=== PATIENT | male | born 1930 | race Caucasian/White ===

== ENCOUNTER 2016-10-27 10:46 | Emergency (ER) | payer MEDICARE, OTHER ==
--- NOTE | 2016-10-27 12:44 | RADIOLOGY REPORT (SQ) ---
EXAM DESCRIPTION: CHEST PA/LAT COMPLETED DATE/TIME: 10/27/2016 12:28 pm REASON FOR STUDY: eval chest tube COMPARISON: None. EXAM PARAMETERS: NUMBER OF VIEWS: two views TECHNIQUE: Digital Frontal and Lateral radiographic views of the chest acquired. RADIATION DOSE: NA LIMITATIONS: none FINDINGS: LUNGS AND PLEURA: Parenchymal opacities at the right base with pleural and parenchymal. R ight apical pleural thickening. Left lung clear. Indwelling large caliber chest tube in the right p leural space. No obvious pneumothorax or there are some small lucencies likely in the right pleural space at the base. MEDIASTINUM AND HILAR STRUCTURES: No masses or contour abnormalities. HEART AND VASCULAR STRUCTURES: Heart normal size. No evidence for failure. BONES: No acute findings. HARDWARE: None in the chest. OTHER: No other significant finding. IMPRESSION: Indwelling right chest tube with no large pneumothorax. Lucencies at the base suggest s mall air bubbles in the right pleural space. Basilar and apical opacities age indeterminate. TECHNICAL DOCUMENTATION: JOB ID: [id number] [employer]- All Rights Reserved
--- NOTE | 2016-10-27 13:53 | ER Document Report ---
ED General - General Chief Complaint: Other Stated Complaint: DRAIN TUBE CHECK Time Seen by Provider: 10/27/16 11:43 TRAVEL OUTSIDE OF THE [place] IN LAST 30 DAYS: No - HPI Patient complains to provider of: Evaluation of chest tube Notes: Patient coming in for evaluation of chest tube. Patient had a chest tube placed in [place] for pleural effusion states has been draining fluid however has a Heimlich or flutter valve that stop making the buzzing noise. Patient states she called the hospital and was told to come to the ER for further evaluation. Denies any fever chills nausea vomiting shortness of breath. Patient otherwise states that he would not be in the ER for was not for this flutter valve - Related Data Allergies/Adverse Reactions: No Known Allergies Allergy (Verified 10/27/16 10:49) Past Medical History - Social History Smoking Status: Former Smoker Chew tobacco use (# tins/day): No Frequency of alcohol use: None Drug Abuse: None Family History: Reviewed & Not Pertinent Patient has suicidal ideation: No Patient has homicidal ideation: No - Past Medical History Cardiac Medical History: Denies: Hx Heart Attack, Hx Hypertension Pulmonary Medical History: Denies: Hx Asthma Neurological Medical History: Denies: Hx Cerebrovascular Accident, Hx Seizures Renal/ Medical History: Denies: Hx Peritoneal Dialysis Malignancy Medical History: Reports Hx Skin Cancer - basal cell carcinoma on back GI Medical History: Reports: Hx Gastroesophageal Reflux Disease. Denies: Hx Hepatitis, Hx Hiatal Hernia, Hx Ulcer Musculoskeltal Medical History: Reports Hx Arthritis Infectious Medical History: Denies: Hx Hepatitis Past Surgical History: Reports: Hx Appendectomy, Hx Herniorrhaphy, Hx Orthopedic Surgery - finger. Denies: Hx Open Heart Surgery, Hx Pacemaker - Immunizations Immunizations up to date: Yes Hx Diphtheria, Pertussis, Tetanus Vaccination: Yes Review of Systems - Review of Systems Constitutional: Other - Evaluation of chest tube EENT: No symptoms reported Cardiovascular: No symptoms reported Respiratory: No symptoms reported Gastrointestinal: No symptoms reported Genitourinary: No symptoms reported Male Genitourinary: No symptoms reported Musculoskeletal: No symptoms reported Skin: No symptoms reported Hematologic/Lymphatic: No symptoms reported Neurological/Psychological: No symptoms reported Physical Exam - Vital signs Vitals: Temp Pulse Resp BP Pulse Ox 97.9 F 97 22 H 146/73 H 98 10/27/16 10:49 10/27/16 10:49 10/27/16 10:49 10/27/16 10:49 10/27/16 10:49 Interpretation: Normal - General General appearance: Appears well, Alert - HEENT Head: Normocephalic, Atraumatic Eyes: Normal Pupils: PERRL - Respiratory Respiratory status: No respiratory distress, Other - Patient had a chest tube that goes to a flutter valve into a fluid collection bottle. Patient is able take a deep breath and when any movement of the flutter valve. Patient has clear lung sounds. There is no signs of infection there is some clear fluid in the chest tube at the flutter valve site Chest status: Nontender Breath sounds: Normal Chest palpation: Normal - Cardiovascular Rhythm: Regular Heart sounds: Normal auscultation Murmur: No - Abdominal Inspection: Normal Distension: No distension Bowel sounds: Normal Tenderness: Nontender Organomegaly: No organomegaly - Back Back: Normal, Nontender - Extremities General upper extremity: Normal inspection, Nontender, Normal color, Normal ROM , Normal temperature General lower extremity: Normal inspection, Nontender, Normal color, Normal ROM , Normal temperature, Normal weight bearing. No: Jimmy's sign - Neurological Neuro grossly intact: Yes Cognition: Normal Orientation: AAOx4 [place] Coma Scale Eye Opening: Spontaneous [place]sie Coma Scale Verbal: Oriented [place] Coma Scale Motor: Obeys Commands [place] Coma Scale Total: 15 Speech: Normal Motor strength normal: LUE, RUE, LLE, RLE Sensory: Normal - Psychological Associated symptoms: Normal affect, Normal mood - Skin Skin Temperature: Warm Skin Moisture: Dry Skin Color: Normal Course - Re-evaluation Re-evalutation: 10/27/16 16:40 Chest x-ray shows no remaining pneumothorax. I did discuss findings with the cardiothoracic surgeon in [place] at [facility] who states that the patient more likely had an air leak and therefore the flutter valve should not be working at the air leak has healed. At this continues more likely patient will have a chest tube removed in the following week and that he will contact the patient. This was relayed towards patient patient agrees and will be discharged home - Vital Signs Vital signs: Temp Pulse Resp BP Pulse Ox 97.9 F 73 17 145/70 H 98 10/27/16 10:49 10/27/16 14:05 10/27/16 14:05 10/27/16 14:05 10/27/16 14:05 Discharge - Discharge Clinical Impression: Chest tube evaluation Condition: Stable Disposition: HOME, SELF-CARE Additional Instructions: I discussed your chest x-ray with your cardiothoracic surgeon at [facility]. Your chest to is functioning properly you can expect a phone call from your cardiothoracic surgeon at that they may be ready to remove your tube. Return to the ER or see her physician for any fevers chills or sudden on onset of shortness of breath. Referrals: SHARMIN BETTS MD [Primary Care Provider] - Follow up as needed
[2016-10-27 14:07] VITALS: BP 145/70
== END 2016-10-27 14:10 | disposition home or self-care (01) ==
LOC: ER 10:46
DX: T85.898A Other specified complication of other internal prosthetic devices, implants and grafts, initial encounter (principal); Z87.891 Personal history of nicotine dependence; X58.XXXA Exposure to other specified factors, initial encounter
CPT/HCPCS: 71020; 99283

== ENCOUNTER 2017-09-20 10:25 | Emergency (ER) | payer MEDICARE, OTHER ==
[2017-09-20 10:34] VITALS: BP 136/84
[2017-09-20] MEDS ORDERED: ACETAMINOPHEN 325 MG TABLET PO ONE (10:51)
--- NOTE | 2017-09-20 10:53 | ER Document Report ---
ED Medical Screen (RME) - General Chief Complaint: Back Injury Stated Complaint: BACK PAIN Time Seen by Provider: 09/20/17 10:45 Notes: RAPID MEDICAL EVALUATION DISCLOSURE I have seen this patient as part of a Rapid Medical Evaluation and, if applicable, placed any initially appropriate orders. The patient will be seen and fully evaluated, including a full history and physical exam, by a provider ( in Main ED or Fast Track) when a room becomes available. 87-year-old male here with complaints of low back pain and bilateral hip pain that started several days ago after he fell. He states the reason he fell was because he was going up the steps and "my legs gave out on me". He denies pain other than the low back and the hips. He reports he did not hit his head or neck or have any loss of consciousness. He has not been taking anything for pain because he did not know what to take. Denies any other symptoms. EXAM Minimal to mild midline lumbar spine TTP Minimal to mild lumbar paraspinal muscle TTP TRAVEL OUTSIDE OF THE [place] IN LAST 30 DAYS: No - Related Data Allergies/Adverse Reactions: No Known Allergies Allergy (Verified 09/20/17 10:32) Past Medical History - Past Medical History Cardiac Medical History: Denies: Hx Heart Attack, Hx Hypertension Pulmonary Medical History: Denies: Hx Asthma Neurological Medical History: Denies: Hx Cerebrovascular Accident, Hx Seizures Renal/ Medical History: Denies: Hx Peritoneal Dialysis Malignancy Medical History: Reports Hx Skin Cancer - basal cell carcinoma on back GI Medical History: Reports: Hx Gastroesophageal Reflux Disease. Denies: Hx Hepatitis, Hx Hiatal Hernia, Hx Ulcer Musculoskeltal Medical History: Reports Hx Arthritis Infectious Medical History: Denies: Hx Hepatitis Past Surgical History: Reports: Hx Appendectomy, Hx Herniorrhaphy, Hx Orthopedic Surgery - finger. Denies: Hx Open Heart Surgery, Hx Pacemaker - Immunizations Immunizations up to date: Yes Hx Diphtheria, Pertussis, Tetanus Vaccination: Yes Physical Exam - Vital signs Vitals: Temp Pulse Resp BP Pulse Ox 97.7 F 78 18 136/84 H 97 09/20/17 10:33 09/20/17 10:33 09/20/17 10:33 09/20/17 10:33 09/20/17 10:33 Course - Vital Signs Vital signs: Temp Pulse Resp BP Pulse Ox 97.7 F 78 18 136/84 H 97 09/20/17 10:33 09/20/17 10:33 09/20/17 10:33 09/20/17 10:33 09/20/17 10:33
--- NOTE | 2017-09-20 11:30 | RADIOLOGY REPORT (SQ) ---
EXAM DESCRIPTION: L SPINE WHOLE COMPLETED DATE/TIME: 09/20/2017 11:19 am REASON FOR STUDY: s/p fall COMPARISON: None. NUMBER OF VIEWS: Five views including obliques. TECHNIQUE: AP, lateral, oblique, and sacral radiographic images acquired of the lumbar spine. LIMITATIONS: None. FINDINGS: MINERALIZATION: Normal. SEGMENTATION: Transitional vertebra. ALIGNMENT: Minor anterolisthesis L2-3 with arthritic change facet joints. No defects of the pars int erarticularis. VERTEBRAE: Maintained height. No fracture or worrisome bone lesion. DISCS: Multilevel disc space narrowing with osteophytes. POSTERIOR ELEMENTS: Pedicles and facets are intact. No pars defect or posterior arch defects. Facet arthropathy is present. HARDWARE: None in the spine. PARASPINAL SOFT TISSUES: Normal. PELVIS: Intact as visualized. No fractures or worrisome bone lesions. SI joints intact. OTHER: No other significant finding. SEGMENTATION: Transitional vertebra. IMPRESSION: Degenerative changes lumbar spine. No acute fractures identified. TECHNICAL DOCUMENTATION: JOB ID: [id number] [employer]- All Rights Reserved Reading location - IP/workstation name: [facility]
--- NOTE | 2017-09-20 11:33 | RADIOLOGY REPORT (SQ) ---
EXAM DESCRIPTION: PELVIS AP COMPLETED DATE/TIME: 09/20/2017 11:19 am REASON FOR STUDY: s/p fall COMPARISON: None. NUMBER OF VIEWS: One view TECHNIQUE: AP Pelvis LIMITATIONS: None. FINDINGS: MINERALIZATION: Normal. HIPS: No acute fractures identified. Mild arthritic changes noted. PELVIS AND SACRUM: No acute fracture or dislocation. No worrisome bone lesions. PUBIS AND ISCHIUM: No acute fracture. LOWER LUMBAR SPINE: See lumbar spine same date SOFT TISSUES: Surgical clips noted anteriorly. OTHER: If an occult fracture suspected clinically, consider followup imaging. IMPRESSION: No acute fractures identified. TECHNICAL DOCUMENTATION: JOB ID: [id number] [employer]- All Rights Reserved Reading location - IP/workstation name: [facility]
--- NOTE | 2017-09-20 13:53 | ER Document Report ---
ED Neck/Back Problem <KELLY MULTANI - Last Filed: 09/20/17 14:00> - General Mode of Arrival: Ambulatory Information source: Patient TRAVEL OUTSIDE OF THE [place] IN LAST 30 DAYS: No <SAMIR NASH - Last Filed: 09/20/17 14:56> - General Chief Complaint: Back Injury Stated Complaint: BACK PAIN Time Seen by Provider: 09/20/17 10:45 Notes: Patient is an 87-year-old male who presents to the emergency department today with complaints of back pain. Patient states that he fell 2 days ago when walking up the stairs because his leg gave out. Patient states this has not happened in the past. Patient states he did not hit his head. Patient has tried nothing at home for the pain. (SAMIR NASH) - Related Data Allergies/Adverse Reactions: No Known Allergies Allergy (Verified 09/20/17 10:32) Past Medical History - General Information source: Patient - Social History Smoking Status: Former Smoker Cigarette use (# per day): No Chew tobacco use (# tins/day): No Frequency of alcohol use: Rare Drug Abuse: None Lives with: Family Family History: Reviewed & Not Pertinent Patient has suicidal ideation: No Patient has homicidal ideation: No Malignancy Medical History: Reports Hx Skin Cancer - basal cell carcinoma on back GI Medical History: Reports: Hx Gastroesophageal Reflux Disease Musculoskeltal Medical History: Reports Hx Arthritis Past Surgical History: Reports: Hx Abdominal Surgery - inguinal hernia repair, Hx Appendectomy, Hx Herniorrhaphy, Hx Orthopedic Surgery - finger - Immunizations Immunizations up to date: Yes Hx Diphtheria, Pertussis, Tetanus Vaccination: Yes <SAMIR NASH - Last Filed: 09/20/17 14:56> Review of Systems - Review of Systems Constitutional: No symptoms reported EENT: No symptoms reported Cardiovascular: No symptoms reported Respiratory: No symptoms reported Gastrointestinal: No symptoms reported Genitourinary: No symptoms reported Male Genitourinary: No symptoms reported Musculoskeletal: See HPI, Back pain Skin: No symptoms reported Hematologic/Lymphatic: No symptoms reported Neurological/Psychological: No symptoms reported -: Yes All other systems reviewed and negative <SAMIR NASH - Last Filed: 09/20/17 14:56> Physical Exam <KELLY MULTANI - Last Filed: 09/20/17 14:00> <SAMIR NASH - Last Filed: 09/20/17 14:56> - Vital signs Vitals: Temp Pulse Resp BP Pulse Ox 97.7 F 78 18 136/84 H 97 09/20/17 10:33 09/20/17 10:33 09/20/17 10:33 09/20/17 10:33 09/20/17 10:33 - Notes Notes: Physical Exam: General: Alert, appears well. HEENT: Normocephalic. Atraumatic. PERRL. Extraocular movements intact. Oropharynx clear. Neck: Supple. Non-tender. Respiratory: No respiratory distress. Clear and equal breath sounds bilaterally. Cardiovascular: Regular rate and rhythm. Abdominal: Normal Inspection. Non-tender. No distension. Normal Bowel Sounds. Back: Lower lumbar and upper sacral tenderness with palpation over spinous processes. Paralumbar musculature tenderness with palpation, R>L . No deformity or step off. Extremities: Moves all four extremities. Upper extremities: Normal inspection. Normal ROM. Lower extremities: Normal inspection. No edema. Normal ROM. Neurological: Normal cognition. AAOx4. Normal speech. Psychological: Normal affect. Normal Mood. Skin: Warm. Dry. Normal color. (SAMIR NASH) Course - Diagnostic Test Radiology reviewed: Image reviewed, Reports reviewed - Lumbar facet arthropathy , no acute processes found on L-spine and pelvic x-rays. 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 <KELLY MULTANI - Last Filed: 09/20/17 14:00> - Vital Signs Vital signs: Temp Pulse Resp BP Pulse Ox 98.7 F 78 18 136/84 H 97 09/20/17 14:18 09/20/17 10:33 09/20/17 10:33 09/20/17 10:33 09/20/17 10:33 Discharge <KELLY MULTANI - Last Filed: 09/20/17 14:00> <SAMIR NASH - Last Filed: 09/20/17 14:56> - Discharge Clinical Impression: Lumbar back pain Condition: Stable Disposition: HOME, SELF-CARE Additional Instructions: You probably contused and strained the muscles in your low back when you fell 2 days ago. You should rest and use moist heat to the painful area. Take Tylenol for pain if needed. Take the pain medication as prescribed if Tylenol alone does not control your pain. Limit your activity for the next several days. You should not try to drive as long as you are having back pain or requiring pain medicine to control your back pain. Follow-up with your doctor at the [facility] next week for recheck if not feeling better. RETURN TO THE EMERGENCY ROOM IF ANY NEW OR WORSENING SYMPTOMS. Prescriptions: Hydrocodone Bit/Acetaminophen [Hydrocodon-Acetaminoph 2.5-325] 1 each PO ASDIR PRN #25 tablet PRN Reason: For Back Pain Scribe Attestation: 09/20/17 14:01 I personally performed the services described in the documentation, reviewed and edited the documentation which was dictated to the scribe in my presence, and it accurately records my words and actions. (KELLY MULTANI) Scribe Documentation - Scribe Written by Sangeetha:: Sangeetha Severino, 09/30/2017 1546 acting as scribe for :: Andre <SAMIR NASH - Last Filed: 09/20/17 14:56>
== END 2017-09-20 14:18 | disposition home or self-care (01) ==
LOC: ER 10:25
DX: M54.5 Low back pain (principal); W19.XXXA Unspecified fall, initial encounter; Z87.891 Personal history of nicotine dependence
CPT/HCPCS: 99283; 72110; 72170; A9270

== ENCOUNTER 2017-10-17 06:33 | Inpatient (IN) | payer MEDICARE, OTHER ==
[2017-10-17] MEDS ORDERED: FENTANYL CITRATE INJ/PF 100 MCG/2 ML AMPUL IV ONE ×2 (07:04→09:47)
[2017-10-17] MEDS ORDERED: NORMAL SALINE 500 ML IV ONE (07:16)
--- NOTE | 2017-10-17 07:16 | ER Document Report ---
ED General - General Chief Complaint: Back Pain Stated Complaint: LOWER BACK PAIN Time Seen by Provider: 10/17/17 06:52 Mode of Arrival: Medic Information source: Patient, Emergency Med Personnel, [facility] Records Notes: 87-year-old male with chronic low back pain presents via EMS with complaint of low back pain. Patient states that over the last 2 days he has had an exacerbation of his chronic low back pain. He denies any recent falls. He states his last fall was 2 weeks ago and he was evaluated in the emergency room at that time. Patient states that he awoke this morning and was unable to roll over or get himself out of bed. He states that he normally ambulates with a walker. Patient lives at home with his . He denies any fever, chills, nausea, vomiting, chest pain, upper back pain, abdominal pain, dysuria, hematuria. He denies saddle anesthesia, urinary retention but states that he has urgent bowel movements where he could not make it to the bathroom. Patient denies history of IV drug abuse. He states that he is waiting for the [facility] to get him into pain management. He does not take any pain medication normally. Pain is worse with sitting, standing and leaves with laying flat. TRAVEL OUTSIDE OF THE [place] IN LAST 30 DAYS: No - HPI Onset: This morning Onset/Duration: Constant, Worse Quality of pain: Stabbing Severity: Mild Associated symptoms: denies: Chest pain, Fever, Leg swelling, Nausea, Shortness of breath, Weakness Exacerbated by: Sitting, Standing Relieved by: Supine Similar symptoms previously: Yes Recently seen / treated by doctor: Yes - Related Data Allergies/Adverse Reactions: No Known Allergies Allergy (Verified 10/17/17 15:47) Past Medical History - General Information source: Patient, Emergency Med Personnel, [facility] Records - Social History Smoking Status: Never Smoker Frequency of alcohol use: None Drug Abuse: None Lives with: Spouse/Significant other Family History: Reviewed & Not Pertinent Patient has suicidal ideation: No Patient has homicidal ideation: No - Past Medical History Cardiac Medical History: Denies: Hx Heart Attack, Hx Hypertension Pulmonary Medical History: Denies: Hx Asthma Neurological Medical History: Denies: Hx Cerebrovascular Accident, Hx Seizures Renal/ Medical History: Denies: Hx Peritoneal Dialysis Malignancy Medical History: Reports Hx Skin Cancer - basal cell carcinoma on back GI Medical History: Reports: Hx Gastroesophageal Reflux Disease. Denies: Hx Hepatitis, Hx Hiatal Hernia, Hx Ulcer Musculoskeltal Medical History: Reports Hx Arthritis Infectious Medical History: Denies: Hx Hepatitis Past Surgical History: Reports: Hx Abdominal Surgery - inguinal hernia repair, Hx Appendectomy, Hx Herniorrhaphy, Hx Orthopedic Surgery - finger. Denies: Hx Open Heart Surgery, Hx Pacemaker - Immunizations Immunizations up to date: Yes Hx Diphtheria, Pertussis, Tetanus Vaccination: Yes Review of Systems - Review of Systems Notes: REVIEW OF SYSTEMS: CONSTITUTIONAL : Denies fever, chills, or sweats. Denies recent illness. Denies weight loss, recent hospitalizations. EENT: Denies visual changes, eye pain. Denies nasal or sinus congestion or discharge. Denies sore throat, oral lesions, difficulty swallowing. CARDIOVASCULAR: Denies chest pain. Denies palpitations. Denies lower extremity edema. RESPIRATORY: Denies cough, cold, or chest congestion. Denies shortness of breath, wheezing. GASTROINTESTINAL: Denies abdominal pain or distention. Denies nausea, vomiting , or diarrhea. Denies blood in vomitus, stools, or per rectum. Denies black, tarry stools. Denies constipation. GENITOURINARY: Denies difficulty urinating, painful urination, frequency, blood in urine, or vaginal discharge. MUSCULOSKELETAL: Denies neck pain or stiffness. Denies joint pain or swelling. SKIN: Denies rash, lesions or sores. HEMATOLOGIC : Denies easy bruising or bleeding. LYMPHATIC: Denies swollen glands. NEUROLOGICAL: Denies confusion or altered mental status. Denies passing out or loss of consciousness. Denies dizziness or lightheadedness. Denies headache. Denies weakness or paralysis. Denies problems difficulty with ambulation, slurred speech. Denies sensory loss, numbness, or tingling. Denies seizures. PSYCHIATRIC: Denies anxiety or stress. Denies depression, suicidal ideation, or homicidal ideation. Denies visual or auditory hallucinations. Physical Exam - Vital signs Vitals: Resp 23 H 10/17/ 06:45 - Notes Notes: PHYSICAL EXAMINATION: GENERAL: Well-appearing, well-nourished and in no acute distress. HEAD: Atraumatic, normocephalic. EYES: Pupils equal round and reactive to light, extraocular movements intact, sclera anicteric, conjunctiva are normal. ENT: Nares patent, oropharynx clear without exudates. Dry mucous membranes. NECK: Normal range of motion, supple without lymphadenopathy LUNGS: Breath sounds clear to auscultation bilaterally and equal. No wheezes rales or rhonchi. HEART: Regular rate and rhythm without murmurs. Radial, femoral and DP pulse intact. ABDOMEN: Soft, nontender, nondistended abdomen. No guarding, no rebound. No masses appreciated. : Good rectal tone, sensation Musculoskeletal: Normal range of motion in all 4 extremities, no pitting or edema. No cyanosis. NEUROLOGICAL: Cranial nerves grossly intact. Normal speech, normal gait. Normal sensory, motor exams. Straight leg raise negative bilaterally. 5/5 strength in dorsi and plantar flexion. 2/4 DTRs. PSYCH: Normal mood, normal affect. SKIN: Warm, Dry, normal turgor, no rashes or lesions noted. Course - Re-evaluation Re-evalutation: Chest X-Ray 10/17/17 07:05 IMPRESSION: Patchy increased density in the right mid lung field most consistent with a patchy pneumonic infiltrate. There is an associated small right pleural effusion. Other findings as noted above. Laboratory 10/17/17 10/17/17 10/17/17 06:56 06:56 06:56 WBC 8.8 RBC 3.13 L Hgb 9.4 L Hct 28.2 L MCV 90 MCH 30.2 MCHC 33.5 RDW 14.7 H Plt Count 355 Seg Neutrophils % 81.3 H Lymphocytes % 9.9 L Monocytes % 6.2 Eosinophils % 2.2 Basophils % 0.4 Absolute Neutrophils 7.2 Absolute Lymphocytes 0.9 Absolute Monocytes 0.5 Absolute Eosinophils 0.2 Absolute Basophils 0.0 ESR Sodium 147.9 H Potassium 3.5 L Chloride 106 Carbon Dioxide 26 Anion Gap 16 BUN 24 H Creatinine 0.93 Est GFR ( Amer) > 60 Est GFR (Non-Af Amer) > 60 Glucose 71 L Calcium 7.8 L Total Bilirubin 0.5 Direct Bilirubin 0.3 Neonat Total Bilirubin Not Reportable Neonat Direct Bilirubin Not Reportable Neonat Indirect Bili Not Reportable AST 30 ALT 24 Alkaline Phosphatase 104 Creatine Kinase 89 CK-MB (CK-2) Troponin I C-Reactive Protein NT-Pro-B Natriuret Pep Total Protein 6.6 Albumin 2.7 L Urine Color Urine Appearance Urine pH Ur Specific [place] Urine Protein Urine Glucose (UA) Urine Ketones Urine Blood Urine Nitrite Urine Bilirubin Urine Urobilinogen Ur Leukocyte Esterase Urine WBC (Auto) Urine RBC (Auto) U Hyaline Cast (Auto) Urine Bacteria (Auto) Urine Mucus (Auto) Urine Ascorbic Acid 10/17/17 10/17/17 10/17/17 06:56 06:56 06:56 WBC RBC Hgb Hct MCV MCH MCHC RDW Plt Count Seg Neutrophils % Lymphocytes % Monocytes % Eosinophils % Basophils % Absolute Neutrophils Absolute Lymphocytes Absolute Monocytes Absolute Eosinophils Absolute Basophils ESR 116 H Sodium Potassium Chloride Carbon Dioxide Anion Gap BUN Creatinine Est GFR ( Amer) Est GFR (Non-Af Amer) Glucose Calcium Total Bilirubin Direct Bilirubin Neonat Total Bilirubin Neonat Direct Bilirubin Neonat Indirect Bili AST ALT Alkaline Phosphatase Creatine Kinase CK-MB (CK-2) 1.02 Troponin I 0.019 C-Reactive Protein 169.5 H NT-Pro-B Natriuret Pep 3850 H Total Protein Albumin Urine Color Urine Appearance Urine pH Ur Specific [place] Urine Protein Urine Glucose (UA) Urine Ketones Urine Blood Urine Nitrite Urine Bilirubin Urine Urobilinogen Ur Leukocyte Esterase Urine WBC (Auto) Urine RBC (Auto) U Hyaline Cast (Auto) Urine Bacteria (Auto) Urine Mucus (Auto) Urine Ascorbic Acid 10/17/17 08:00 WBC RBC Hgb Hct MCV MCH MCHC RDW Plt Count Seg Neutrophils % Lymphocytes % Monocytes % Eosinophils % Basophils % Absolute Neutrophils Absolute Lymphocytes Absolute Monocytes Absolute Eosinophils Absolute Basophils ESR Sodium Potassium Chloride Carbon Dioxide Anion Gap BUN Creatinine Est GFR ( Amer) Est GFR (Non-Af Amer) Glucose Calcium Total Bilirubin Direct Bilirubin Neonat Total Bilirubin Neonat Direct Bilirubin Neonat Indirect Bili AST ALT Alkaline Phosphatase Creatine Kinase CK-MB (CK-2) Troponin I C-Reactive Protein NT-Pro-B Natriuret Pep Total Protein Albumin Urine Color YELLOW Urine Appearance CLEAR Urine pH 5.0 Ur Specific [place] 1.018 Urine Protein 30 H Urine Glucose (UA) NEGATIVE Urine Ketones 20 H Urine Blood SMALL H Urine Nitrite NEGATIVE Urine Bilirubin NEGATIVE Urine Urobilinogen NEGATIVE Ur Leukocyte Esterase NEGATIVE Urine WBC (Auto) 4 Urine RBC (Auto) 2 U Hyaline Cast (Auto) 3 Urine Bacteria (Auto) TRACE Urine Mucus (Auto) RARE Urine Ascorbic Acid NEGATIVE 10/17/17 07:16 87-year-old male with a history of chronic back pain presents with an exacerbation of his pain. Patient states that he awoke this morning and was unable to get out of bed or roll to either side. Patient has a long-standing history of back pain, frequent falls. His last fall was 2 weeks ago and he was evaluated in the emergency department at that time. Patient denies any recent falls. Upon arrival vitals reviewed and patient is afebrile, normotensive, not hypoxic or tachycardic. He is in no acute distress. Exam is significant for dry mucous membranes, mild tenderness to palpation in the right and left paraspinal musculature 10/17/17 07:17 10/17/17 08:55 10/17/17 08:56 10/17/17 08:57 Chest x-ray ordered secondary to patient's hypoxia. Found to have a right midlung infiltrate and associated pleural effusion. Patient has not had any recent hospitalizations so azithromycin and ceftriaxone be administered. Additional lab testing ordered. 10/17/17 10:33 Patient's curb 65 score is 3 putting him in the severe risk group for 30 day mortality. Hospitalist contacted for admission. He will evaluate the patient. 10/17/17 15:57 - Vital Signs Vital signs: Temp Pulse Resp BP Pulse Ox 98.9 F 20 112/56 L 100 10/17/17 10:00 10/17/17 15:01 10/17/17 15:01 10/17/17 15:01 - Laboratory Result Diagrams: 10/17/17 06:56 10/17/17 06:56 Laboratory results interpreted by me: 10/17/17 10/17/17 10/17/17 06:56 06:56 06:56 RBC 3.13 L Hgb 9.4 L Hct 28.2 L RDW 14.7 H Seg Neutrophils % 81.3 H Lymphocytes % 9.9 L ESR Sodium 147.9 H Potassium 3.5 L BUN 24 H Glucose 71 L Calcium 7.8 L C-Reactive Protein NT-Pro-B Natriuret Pep 3850 H Albumin 2.7 L Urine Protein Urine Ketones Urine Blood 10/17/17 10/17/17 10/17/17 06:56 06:56 08:00 RBC Hgb Hct RDW Seg Neutrophils % Lymphocytes % ESR 116 H Sodium Potassium BUN Glucose Calcium C-Reactive Protein 169.5 H NT-Pro-B Natriuret Pep Albumin Urine Protein 30 H Urine Ketones 20 H Urine Blood SMALL H - Diagnostic Test Radiology reviewed: Image reviewed, Reports reviewed - EKG Interpretation by Me EKG shows normal: Sinus rhythm Rate: Normal Rhythm: NSR When compared to previous EKG there are: Previous EKG unavailable Discharge - Discharge Clinical Impression: Pleural effusion, Hypoxia, Hypoalbuminemia, Elevated brain natriuretic peptide (BNP) level, Elevated erythrocyte sedimentation rate, Elevated C-reactive protein (CRP) CAP (community acquired pneumonia) Qualifiers: Laterality: right Lung location: unspecified part of lung Qualified Code(s): J18.9 - Pneumonia, unspecified organism Lumbar compression fracture Qualifiers: Encounter type: subsequent encounter Lumbar vertebra fracture level: L3 Fracture type: closed Fracture healing: with routine healing Qualified Code(s): S32.030D - Wedge compression fracture of third lumbar vertebra, subsequent encounter for fracture with routine healing Back pain Qualifiers: Back pain location: low back pain Chronicity: chronic Back pain laterality: bilateral Sciatica presence: with sciatica Sciatica laterality: sciatica laterality unspecified Qualified Code(s): M54.40 - Lumbago with sciatica, unspecified side; G89.29 - Other chronic pain; G89.29 - Other chronic pain Condition: Fair Disposition: ADMITTED INPATIENT Admitting Provider: Hospitalist Unit Admitted: Medical Floor
[2017-10-17 07:22] LABS: ABSOLUTE EOSINOPHILS # (AUTO) 0.2 10^3/uL (0.0-0.6); ABSOLUTE LYMPHOCYTES (AUTO) 0.9 10^3/uL (0.5-4.7); ABSOLUTE MONOCYTES (AUTO) 0.5 10^3/uL (0.1-1.4); ABSOLUTE NEUT (AUTO) 7.2 10^3/uL (1.7-8.2); BASOPHILS % (AUTO) 0.4 % (0-2); EOSINOPHILS % (AUTO) 2.2 % (0-6); HEMATOCRIT 28.2 % (37.9-51.0); HEMOGLOBIN 9.4 g/dL (13.5-17.0); LYMPHOCYTES % (AUTO) 9.9 % (13-45); MEAN CORPUSCULAR HEMOGLOBIN 30.2 pg (27.0-33.4); MEAN CORPUSCULAR HGB CONC 33.5 g/dL (32.0-36.0); MEAN CORPUSCULAR VOLUME 90 fl (80-97); MONOCYTES % (AUTO) 6.2 % (3-13); PLATELET COUNT 355 10^3/uL (150-450); RED BLOOD COUNT 3.13 10^6/uL (4.35-5.55); RED CELL DISTRIBUTION WIDTH 14.7 % (11.5-14.0); SEGMENTED NEUTROPHILS % (AUTO) 81.3 % (42-78); TOTAL CELLS COUNTED % (AUTO) 100 %; WHITE BLOOD COUNT 8.8 10^3/uL (4.0-10.5)
[2017-10-17 07:37] LABS: ALANINE AMINOTRANSFERASE 24 U/L (21-72); ALBUMIN 2.7 g/dL (3.5-5.0); ALKALINE PHOSPHATASE 104 U/L (38-126); ANION GAP 16 (5-19); ASPARTATE AMINO TRANSFERASE 30 U/L (17-59); BILIRUBIN,DIRECT 0.3 mg/dL (0.0-0.4); BILIRUBIN,TOTAL 0.5 mg/dL (0.2-1.3); BLOOD UREA NITROGEN 24 mg/dL (7-20); CALCIUM 7.8 mg/dL (8.4-10.2); CARBON DIOXIDE 26 mmol/L (22-30); CHLORIDE 106 mmol/L (98-107); GLUCOSE 71 mg/dL (75-110); POTASSIUM 3.5 mmol/L (3.6-5.0); SODIUM 147.9 mmol/L (137-145); TOTAL PROTEIN 6.6 g/dL (6.3-8.2)
--- NOTE | 2017-10-17 08:24 | RADIOLOGY REPORT (SQ) ---
EXAM DESCRIPTION: CHEST 2 VIEWS COMPLETED DATE/TIME: 10/17/2017 8:06 am REASON FOR STUDY: hypoxia COMPARISON: October 2016 EXAM PARAMETERS: NUMBER OF VIEWS: two views TECHNIQUE: Digital Frontal and Lateral radiographic views of the chest acquired. RADIATION DOSE: NA LIMITATIONS: none FINDINGS: LUNGS AND PLEURA: There is patchy increased density in the right mid lung field most consi stent with a patchy pneumonic infiltrate although this could represent asymmetric pulmonary edema. T here is blunting of the right costophrenic angle consistent with a small right pleural effusion and t here is some thickening of the minor fissure consistent with a small amount of fluid within the fissu re. Left lung remains clear. Chronic appearing changes are again identified especially in the lung apices. MEDIASTINUM AND HILAR STRUCTURES: No masses or contour abnormalities. HEART AND VASCULAR STRUCTURES: The configuration of the heart and mediastinal structures is unchanged . Tortuous thoracic aorta is identified. BONES: No acute findings. HARDWARE: None in the chest. OTHER: No other significant finding. IMPRESSION: Patchy increased density in the right mid lung field most consistent with a patchy pneum onic infiltrate. There is an associated small right pleural effusion. Other findings as noted above . TECHNICAL DOCUMENTATION: JOB ID: [id number] [employer]- All Rights Reserved Reading location - IP/workstation name: [email or web address]
[2017-10-17] MEDS ORDERED: IPRATROPIUM/ALBUTEROL 0.5-2.5 MG/3 ML AMPUL NEB ONE (08:54)
[2017-10-17] MEDS ORDERED: CEFTRIAXONE 1 GM/D5W RTU 1 GM/50 ML RTUPB IV ONE (08:55)
[2017-10-17 09:15] LABS: APPEARANCE,URINE CLEAR; BILIRUBIN,URINE NEGATIVE (NEGATIVE); COLOR,URINE YELLOW; GLUCOSE, URINE NEGATIVE (NEGATIVE); KETONES,URINE 20 mg/dL (NEGATIVE); LEUKOCYTE ESTERASE,URINE NEGATIVE (NEGATIVE); NITRITE,URINE NEGATIVE (NEGATIVE); PROTEIN,URINE 30 mg/dL (NEGATIVE); URINE SPECIFIC GRAVITY 1.018; UROBILINOGEN,URINE NEGATIVE mg/dL (<2.0)
[2017-10-17 09:43] LABS: CREATINE KINASE MB 1.02 ng/mL (<4.55); TROPONIN I 0.019 ng/mL
--- NOTE | 2017-10-17 10:03 | RADIOLOGY REPORT (SQ) ---
EXAM DESCRIPTION: MRI LUMBAR SPINE WITHOUT COMPLETED DATE/TIME: 10/17/2017 9:03 am REASON FOR STUDY: low back pain, weakness, COMPARISON: Lumbar spine plain films 09/20/2017 TECHNIQUE: Sagittal and Axial imaging includes T1, T2, STIR and gradient echo sequences. Coronal T2/ HASTE imaging. LIMITATIONS: None. FINDINGS: VISUALIZED UPPER ABDOMEN: Limited evaluation. No acute or suspicious findings suggested. SEGMENTATION: There is transitional anatomy. Large bilateral L5 transverse processes articulate with the remainder the sacrum. ALIGNMENT: Minimal grade 1 anterolisthesis of L3 over L4 VERTEBRAE and BONE MARROW: Since the prior plain films from 09/20/2017, patient has developed an infer ior endplate compression at L3 with greater than 50% loss of height anteriorly. There is marrow miguelito a throughout the L3 and upper L4 vertebral bodies. There is loss of discrete bony cortex along the a nterior aspect of the L3 inferior endplate and centrally in the upper endplate of L4. Fluid fills the L3-4 disc space. There is no adjacent psoas muscle abscess or paraspinal phlegmon. STIR images demonstrate advanced facet arthropathy with facet joint edema at L3-4. Bone marrow throughout the remainder of the visualized lumbar spine is otherwise unremarkable. DISC SIGNAL: Markedly abnormal L3-4 disc space as above. POSTERIOR ELEMENTS: Generally intact. No pars defect evident. HARDWARE: None in the spine. CORD AND CONUS: Normal in size and signal intensity. Conus at the appropriate level. SOFT TISSUES: No aortic aneurysm seen. No bulky retroperitoneal adenopathy or mass. No paraspinal mas s or fluid. T11-12: Unremarkable T12-L1: Unremarkable L1-L2: Minimal posterior disc bulging, mild bilateral facet and ligament hypertrophy. No significant central canal narrowing. Mild bilateral inferior foraminal narrowing without exiting L1 nerve root impingement. L2-L3: Broad diffuse posterior disc bulge and bony spurring, moderate bilateral facet and ligament hy pertrophy. Moderate central canal narrowing with flattening of the thecal sac into a triangular shap e and partial effacement of the CSF around the lumbar nerve roots best shown on axial image 13. Mode rate bilateral foraminal narrowing is present right greater than left without definite exiting L2 ner ve root impingement. L3-L4: The L3-4 disc level is markedly abnormal as above. There is fluid throughout disc space, ton cent marrow edema in the L3 and L4 vertebral bodies with partial loss of discrete bony endplate lynn x, and at least 50% compression of L3 with anterior loss of height. There is broad diffuse posterior disc bulge and bony spurring and moderate facet and ligament hypertrophy causing mild central canal stenosis at L3-4. There is high-grade bilateral L3 foraminal narrowing right greater than left with partial effacement of the fat around the exiting L3 nerve roots. Along the posterior elements at L3-4, facet arthropathy is present with edema in the soft tissues maria esther rounding the right and left facet joints, and a small amount of fluid in the facet joints. Changes at L3 and L4 are most likely osteoporotic compression fractures. However, superimposed disci tis/osteomyelitis could not be excluded. These findings were discussed with Dr. Bush in the emerge ncy room. L4-L5: No central or foraminal stenosis. Mild bilateral facet hypertrophy. L5-S1: Small disc space with large transverse processes articulating with the upper sacrum. SACRUM: Visualized upper sacrum intact. OTHER: No other significant findings. IMPRESSION: L3 50% compression deformity with anterior loss of height Abnormal disc space fluid at L3-4, with adjacent vertebral body marrow edema. Although this could be sequela of fractures with pseudoarthrosis, superimposed discitis/osteomyelitis could not be excluded . Findings discussed with the emergency room attending physician TECHNICAL DOCUMENTATION: JOB ID: [id number]- All Rights Reserved Reading location - IP/workstation name: [email or web address]
--- NOTE | 2017-10-17 12:19 | EKG REPORT ---
SEVERITY:- ABNORMAL ECG - SINUS RHYTHM BORDERLINE IVCD WITH LAD CONSIDER ANTEROSEPTAL INFARCT : Confirmed by: Chico Lin MD 17-Oct-2017 12:17:59
--- NOTE | 2017-10-17 16:30 | PDOC H&P ---
History of Present Illness Admission Date/PCP: 10/17/17 11:23 SHARMIN BETTS MD Patient complains of: lower back pain History of Present Illness: MARCELA MATTHEWS is a 87 year old male with history of chronic back pain and rheumatoid arthritis who presents today to [place] [facility] with worsening lower extremity pain. States that he has chronic back pain for over 40 years now. He has had multiple imaging studies over the years and has been evaluated by orthopedic surgery in the past (few years ago). Pain has been controlled medically. However over the past month, he has experience worsening back pain. He notes that around 1 month ago, he was doing some yard work and that causes worsening in his pain. Additonally both he and his family noted that he has had multiple falls. He was using a cane however not required a walker for ambulation. Patient is not best historian but he thinks pain is bilateral and radiates down BOTH front and back of this legs. He has not urinary or fecal incontinence. He denies any fevers or chills. He had lumbar spine and pelvis xrays on 09/20 after a fall, which were negative for acute fracture. His also states that he had knee xrays done recently. The results of these imaging studies are not available. Patient also notes that he has a productive cough over the last week. No sick contacts. He has had 3 bouts of PNA over the last year. Also noted to have lost 100 lbs over the past 2 years. He has had very poor PO intake during this time period. Will be admitted to hospitalist service for further evaluation. Past Medical History Cardiac Medical History: Denies: Myocardial Infarction, Hypertension Pulmonary Medical History: Denies: Asthma Neurological Medical History: Denies: Seizures Malignancy Medical History: Reports: Skin Cancer - basal cell carcinoma on back GI Medical History: Reports: Gastroesophageal Reflux Disease Denies: Hepatitis, Hiatal Hernia Musculoskeltal Medical History: Reports: Arthritis Hematology: Denies: Anemia, Sickle Cell Disease Past Surgical History Past Surgical History: Reports: Appendectomy, Herniorrhaphy, Orthopedic Surgery - finger Denies: Pacemaker Social History Information Source: Patient Lives with: Spouse/Significant other Smoking Status: Never Smoker Frequency of Alcohol Use: Rare Hx Recreational Drug Use: No Drugs: None Family History Family History: Reviewed & Not Pertinent Parental Family History Reviewed: No Children Family History Reviewed: NA Sibling(s) Family History Reviewed.: NA Medication/Allergy Home Medications: Calcium/Magnesium/Vit D3 [Calcium 500 Mg Tablet] 1 each PO DAILY 04/08/12 Multivitamin [Tab-A-Ariadne (Multiple Vitamin) Tablet] 1 tab PO DAILY 04/08/12 Adalimumab [Humira] 40 mg SQ Q14D 10/17/17 Aspirin [Aspirin EC] 81 mg PO DAILY 10/17/17 Cyanocobalamin (Vitamin B-12) [Vitamin B-12] 1,000 mcg PO DAILY 10/17/17 Folic Acid [Folvite 1 mg Tablet] 1 mg PO DAILY 10/17/17 Ipratropium 0.03% 2 sprays NASL TIDP PRN 10/17/17 Methotrexate Sodium [Methotrexate] 10 mg PO Q7D 10/17/17 Mirabegron [Myrbetriq] 50 mg PO DAILY 10/17/17 Nadolol [Corgard] 20 mg PO DAILY 10/17/17 Pantoprazole Sodium [Protonix] 40 mg PO ACBRKFST 10/17/17 Allergies/Adverse Reactions: No Known Allergies Allergy (Verified 10/17/17 15:47) Review of Systems All systems: reviewed and no additional remarkable complaints except as stated Physical Exam Vital Signs: Temp Pulse Resp BP Pulse Ox 98.9 F 20 112/56 L 100 10/17/17 10:00 10/17/17 15:01 10/17/17 15:01 10/17/17 15:01 General appearance: PRESENT: no acute distress, hard of hearing, thin, other - Elderly gentleman, pleasant Head exam: PRESENT: atraumatic, normocephalic Mouth exam: PRESENT: moist Respiratory exam: PRESENT: unlabored. ABSENT: rhonchi - Unable to exam posteriorly due to positioning, tachypnea Cardiovascular exam: PRESENT: +S1, +S2. ABSENT: tachycardia GI/Abdominal exam: PRESENT: soft. ABSENT: tenderness Extremities exam: PRESENT: tenderness - Bilaterally Neurological exam: PRESENT: alert, awake, oriented to place, oriented to time, oriented to situation, CN II-XII grossly intact, other - Decreased muscle strength bilaterally in lower extremities Psychiatric exam: PRESENT: appropriate affect Skin exam: PRESENT: dry, warm, other - Chronic skin changes Results Impressions: Chest X-Ray 10/17/17 07:05 IMPRESSION: Patchy increased density in the right mid lung field most consistent with a patchy pneumonic infiltrate. There is an associated small right pleural effusion. Other findings as noted above. Lumbar Spine MRI 10/17/17 07:05 IMPRESSION: L3 50% compression deformity with anterior loss of height Abnormal disc space fluid at L3-4, with adjacent vertebral body marrow edema. Although this could be sequela of fractures with pseudoarthrosis, superimposed discitis/osteomyelitis could not be excluded. Findings discussed with the emergency room attending physician Assessment & Plan - Diagnosis (1) Lumbar compression fracture Qualifiers: Encounter type: subsequent encounter Lumbar vertebra fracture level: L3 Fracture type: closed Fracture healing: with routine healing Qualified Code( s): S32.030D - Wedge compression fracture of third lumbar vertebra, subsequent encounter for fracture with routine healing Is this a current diagnosis for this admission?: Yes Plan: Acute on chronic back pain. Noted to have multiple witnessed and unwitnessed falls recently. Presented with bilateral leg weakness and shooting pain. No other signs or symptoms of cord compression. MRI today notes L3 spine compression fracture. There is also evidence of disc space fluid at L3-L4 with vertebral body marrow narrow. Differential per radiology includes peudoarthrosis vs. discitis/osteo - ESR/CRP are markedly elevated. Patient also has history of RA which can cause elevation of inflammatory markers. Also being treated for PNA so has potential alternate explanation for elevation. Baseline levels unknown - Consulted ortho for management recommendations, appreciate assistance - Continue conservative management for now - Tylenol ordered for pain control, would avoid narcotics unless needed, particularly given weakness and recent falls - Consulted PT as well for eval (should be done after ortho consultation) (2) Pneumonia Qualifiers: Laterality: right Lung location: middle lobe of lung Is this a current diagnosis for this admission?: Yes Plan: Noted to have cough with sputum culture over last few days. Denies fevers or chills. No leukocytosis. CXR with infiltrate seen in RML - Blood cultures pending, will follow up - ED started on Azithro/Ceftriaxone, will continue for treatment of CAP (3) Physical deconditioning Is this a current diagnosis for this admission?: Yes Plan: Recent falls. Has required use of walker since last month. Consult to PT. Likely will need SNF placement following acute medical management (4) Elevated C-reactive protein (CRP) Is this a current diagnosis for this admission?: Yes Plan: Per above. (5) Hypoalbuminemia Is this a current diagnosis for this admission?: Yes Plan: and patient states that he has lost 100 lbs in the last 2 years. Unable to eat and drink. Albumin is low which is a poor prognostic sign. Appeals Reviewer Veteran consulted, appreciate recs - Time Time Spent: Greater than 70 Minutes Critical Time spent with patient: 15-24 minutes Anticipated discharge: SNF - Inpatient Certification Medical Necessity: Failure to Improve With Outpatient Therapy, Risk of Complication if Not Cared For in Hospital
[2017-10-17] MEDS: OXYCODONE HCL IR 5 MG TABLET PO PRN (18:24)
[2017-10-17] MEDS ORDERED: POTASSIUM CHLORIDE 10 MEQ CAPSULE.ER PO ONE (19:30)
--- NOTE | 2017-10-17 20:23 | EKG REPORT ---
SEVERITY:- ABNORMAL ECG - SINUS RHYTHM ATRIAL PREMATURE COMPLEX LEFT ANTERIOR FASCICULAR BLOCK OLD ANTEROSEPTAL ND : Confirmed by: Chico Lin MD 17-Oct-2017 20:21:44
[2017-10-18 06:29] LABS: HEMATOCRIT 24.6 % (37.9-51.0); HEMOGLOBIN 8.4 g/dL (13.5-17.0); MEAN CORPUSCULAR HEMOGLOBIN 30.2 pg (27.0-33.4); MEAN CORPUSCULAR HGB CONC 34.1 g/dL (32.0-36.0); MEAN CORPUSCULAR VOLUME 88 fl (80-97); PLATELET COUNT 279 10^3/uL (150-450); RED BLOOD COUNT 2.78 10^6/uL (4.35-5.55); RED CELL DISTRIBUTION WIDTH 15.1 % (11.5-14.0); WHITE BLOOD COUNT 7.7 10^3/uL (4.0-10.5)
[2017-10-18 06:47] LABS: ANION GAP 8 (5-19); BLOOD UREA NITROGEN 14 mg/dL (7-20); CALCIUM 7.2 mg/dL (8.4-10.2); CARBON DIOXIDE 28 mmol/L (22-30); CHLORIDE 107 mmol/L (98-107); GLUCOSE 97 mg/dL (75-110); POTASSIUM 3.9 mmol/L (3.6-5.0)
[2017-10-18] MEDS: ENOXAPARIN SODIUM INJ 40 MG/0.4 ML DISP.SYRIN SUBCUT SCH (09:16)
[2017-10-18] MEDS: AZITHROMYCIN 250 MG TABLET PO SCH (09:16)
[2017-10-18] MEDS: OXYCODONE HCL IR 5 MG TABLET PO PRN ×2 (09:16→17:46)
[2017-10-18] MEDS: CEFTRIAXONE SODIUM 1,000 MG in DEXTROSE 5%-WATER 50 ML IV SCH (09:16)
[2017-10-18] MEDS ORDERED: CEFTRIAXONE 1 GM/D5W RTU 1 GM/50 ML RTUPB IV SCH (10:00)
--- NOTE | 2017-10-18 12:31 | RADIOLOGY REPORT (SQ) ---
EXAM DESCRIPTION: HIP RIGHT AP/LATERAL COMPLETED DATE/TIME: 10/18/2017 11:36 am REASON FOR STUDY: right hip pain and falls COMPARISON: None. NUMBER OF VIEWS: Two views. TECHNIQUE: AP pelvis and additional frog-leg view of the right hip. LIMITATIONS: None. FINDINGS: MINERALIZATION: Normal. RIGHT HIP: No fracture or dislocation. No worrisome bone lesions. Degenerative changes with scleros is and small osteophytes. LEFT HIP: No fracture or dislocation. No worrisome bone lesions. Degenerative changes with sclerosi s and small osteophytes. PUBIS AND ISCHIUM: No fracture. PELVIS: No fracture. SACRUM: No fracture or dislocation. No worrisome bone lesions. LOWER LUMBAR SPINE: No fracture or dislocation. No worrisome bone lesions. Degenerative disc disease . SOFT TISSUES: No findings. OTHER: No other significant finding. IMPRESSION: DEGENERATIVE CHANGES. NO RADIOGRAPHIC EVIDENCE OF ACUTE INJURY. TECHNICAL DOCUMENTATION: JOB ID: [id number] [employer]- All Rights Reserved Reading location - IP/workstation name: [facility]
[2017-10-19] MEDS: LANSOPRAZOLE 15 MG TAB.RAP.DR PO SCH (05:02)
--- NOTE | 2017-10-19 07:45 | PDOC PROGRESS REPORT ---
Subjective Progress Note for:: 10/18/17 Subjective:: Continues to have low back pain with some leg pain as well. No bowel or bladder incontinence. He thinks overall he is getting better. We spoke at length about his PCP attempting [facility] and he asked that we talk to his PCP about any plan related to his back. No chest pain, no dyspnea, no fevers. Cough improving. Reason For Visit: PNEUMONIA,L3 COMPRESSION FRACTURE Physical Exam Vital Signs: Temp Pulse Resp BP Pulse Ox 98.6 F 86 16 126/66 H 100 10/18/17 15:23 10/18/17 15:23 10/18/17 15:23 10/18/17 15:23 10/18/17 15:23 Intake & Output 10/17/17 10/18/17 10/19/17 06:59 06:59 06:59 Intake Total 30 958 Balance 30 958 Weight 59 kg General appearance: PRESENT: no acute distress, cooperative Head exam: PRESENT: atraumatic, normocephalic Eye exam: ABSENT: conjunctival injection, scleral icterus Ear exam: PRESENT: normal external ear exam Mouth exam: PRESENT: moist Respiratory exam: PRESENT: clear to auscultation miguel, unlabored. ABSENT: rales , rhonchi, wheezes Cardiovascular exam: PRESENT: RRR GI/Abdominal exam: PRESENT: normal bowel sounds, soft. ABSENT: distended, firm , tenderness Rectal exam: PRESENT: deferred Extremities exam: ABSENT: calf tenderness, pedal edema Neurological exam: PRESENT: alert, awake, oriented to person, oriented to place , oriented to situation. ABSENT: motor sensory deficit Psychiatric exam: PRESENT: appropriate affect. ABSENT: anxious Skin exam: PRESENT: dry, intact, warm Results Laboratory Results: 10/18/17 06:13 10/18/17 06:13 10/18/17 10/18/17 06:13 06:13 WBC 7.7 RBC 2.78 L Hgb 8.4 L Hct 24.6 L MCV 88 MCH 30.2 MCHC 34.1 RDW 15.1 H Plt Count 279 Sodium 143.0 Potassium 3.9 Chloride 107 Carbon Dioxide 28 Anion Gap 8 BUN 14 Creatinine 0.71 Est GFR ( Amer) > 60 Est GFR (Non-Af Amer) > 60 Glucose 97 Calcium 7.2 L Impressions: Chest X-Ray 10/17/17 07:05 IMPRESSION: Patchy increased density in the right mid lung field most consistent with a patchy pneumonic infiltrate. There is an associated small right pleural effusion. Other findings as noted above. Lumbar Spine MRI 10/17/17 07:05 IMPRESSION: L3 50% compression deformity with anterior loss of height Abnormal disc space fluid at L3-4, with adjacent vertebral body marrow edema. Although this could be sequela of fractures with pseudoarthrosis, superimposed discitis/osteomyelitis could not be excluded. Findings discussed with the emergency room attending physician Hip/Pelvis X-Ray 10/18/17 00:00 IMPRESSION: DEGENERATIVE CHANGES. NO RADIOGRAPHIC EVIDENCE OF ACUTE INJURY. Assessment & Plan - Diagnosis (1) Back pain Qualifiers: Back pain location: low back pain Chronicity: chronic Back pain laterality: bilateral Sciatica presence: with sciatica Sciatica laterality: sciatica laterality unspecified Qualified Code(s): M54.40 - Lumbago with sciatica, unspecified side; G89.29 - Other chronic pain; G89.29 - Other chronic pain Is this a current diagnosis for this admission?: Yes Plan: related to new compression fracture but also on MRI there is evidence of osteomyelitis and/or disckitis. Ortho in the hospital yesterday is not school library media specialist. Will speak with ID consult service about work up of the osteo/ disckitis and then will proceed with possible tx of compression fracture for pain control. Pain service Dr. Fredy Dominique can do kyphoplasty and biopsy of needed on Saturday. Will cont tylenol and PT for now. (2) CAP (community acquired pneumonia) Qualifiers: Laterality: right Lung location: unspecified part of lung Qualified Code( s): J18.9 - Pneumonia, unspecified organism Is this a current diagnosis for this admission?: Yes Plan: clinically improved, cont current azithromycin at 250 for 3 more days and daily ceftriaxone 1 gram. Await blood and sputum cultures. (3) Lumbar compression fracture Qualifiers: Encounter type: subsequent encounter Lumbar vertebra fracture level: L3 Fracture type: closed Fracture healing: with routine healing Qualified Code( s): S32.030D - Wedge compression fracture of third lumbar vertebra, subsequent encounter for fracture with routine healing Is this a current diagnosis for this admission?: Yes Plan: please see back pain above. (4) Elevated C-reactive protein (CRP) Is this a current diagnosis for this admission?: Yes Plan: Multiple issues that could be contributing. Pt has RA, possible osteo/discitis , acute compression fracture. Will treat acute problems and monitor. (5) Hypoalbuminemia Is this a current diagnosis for this admission?: Yes Plan: pt has been losing weight over the past year, unclear why, poor prognostic signs -weight loss and low albumin. Will assure that if not etiology found here pt has good PCP follow up plan. (6) Physical deconditioning Is this a current diagnosis for this admission?: Yes Plan: multiple recent falls, PT on board, mutifactorial. Treating underlying conditions as we are able, will need good out pt follow up. - Time Time Spent with patient: 35 or more minutes - Inpatient Certification Based on my medical assessment, after consideration of the patient's comorbidities, presenting symptoms, or acuity I expect that the services needed warrant INPATIENT care.: Yes I certify that my determination is in accordance with my understanding of Medicare's requirements for reasonable and necessary INPATIENT services [42 CFR 412.3e].: Yes Medical Necessity: Significant Comorbidiites Make Outpatient Treatment Too Risky , Risk of Complication if Not Cared For in Hospital
[2017-10-19] MEDS: OXYCODONE HCL IR 5 MG TABLET PO PRN (10:30)
[2017-10-19] MEDS: CEFTRIAXONE SODIUM 1,000 MG in DEXTROSE 5%-WATER 50 ML IV SCH (10:42)
[2017-10-19] MEDS: AZITHROMYCIN 250 MG TABLET PO SCH (10:43)
[2017-10-19] MEDS: FOLIC ACID 1 MG TABLET PO SCH (10:43)
[2017-10-19] MEDS: ENOXAPARIN SODIUM INJ 40 MG/0.4 ML DISP.SYRIN SUBCUT SCH (10:43)
[2017-10-19] MEDS: MULTIVITAMIN TABLET PO SCH (10:43)
--- NOTE | 2017-10-19 17:19 | PDOC PROGRESS REPORT ---
Subjective Progress Note for:: 10/19/17 Subjective:: Patient continues to have mid back pain. There is no more pain shooting down his left side but he continues to have pain in the right hip with movement. He does not think that he can work with physical therapy yet. No bowel or bladder incontinence. No tingling or numbness in either lower extremity. His strength is good. No chest pain or difficulty breathing. He is coughing a little bit. No fevers or chills. His brought his medications in today and we will have the pharmacy reconcile those. He and I discussed at length the plan for his compression fracture and evaluation for possible osteomyelitis discitis Reason For Visit: PNEUMONIA,L3 COMPRESSION FRACTURE Physical Exam Vital Signs: Temp Pulse Resp BP Pulse Ox 97.9 F 87 16 113/60 100 10/19/17 15:28 10/19/17 15:28 10/19/17 15:28 10/19/17 15:28 10/19/17 15:28 Intake & Output 10/18/17 10/19/17 10/20/17 06:59 06:59 06:59 Intake Total 30 978 354 Output Total 350 Balance 30 628 354 Weight 59 kg General appearance: PRESENT: no acute distress, thin Head exam: PRESENT: atraumatic, normocephalic, other - Bitemporal wasting evident Eye exam: ABSENT: conjunctival injection, scleral icterus Mouth exam: PRESENT: dry mucosa, tongue midline, other - Erythematous tongue. Respiratory exam: PRESENT: clear to auscultation miguel, unlabored. ABSENT: rales , rhonchi, wheezes Cardiovascular exam: PRESENT: RRR. ABSENT: systolic murmur Pulses: PRESENT: normal radial pulses GI/Abdominal exam: PRESENT: normal bowel sounds, soft. ABSENT: distended, guarding, tenderness Extremities exam: ABSENT: pedal edema Neurological exam: PRESENT: alert, awake, oriented to person, oriented to place , oriented to situation, CN II-XII grossly intact Psychiatric exam: PRESENT: appropriate affect. ABSENT: anxious Skin exam: PRESENT: dry, warm Results Laboratory Results: 10/18/17 06:13 10/18/17 06:13 Impressions: Chest X-Ray 10/17/17 07:05 IMPRESSION: Patchy increased density in the right mid lung field most consistent with a patchy pneumonic infiltrate. There is an associated small right pleural effusion. Other findings as noted above. Lumbar Spine MRI 10/17/17 07:05 IMPRESSION: L3 50% compression deformity with anterior loss of height Abnormal disc space fluid at L3-4, with adjacent vertebral body marrow edema. Although this could be sequela of fractures with pseudoarthrosis, superimposed discitis/osteomyelitis could not be excluded. Findings discussed with the emergency room attending physician Hip/Pelvis X-Ray 10/18/17 00:00 IMPRESSION: DEGENERATIVE CHANGES. NO RADIOGRAPHIC EVIDENCE OF ACUTE INJURY. Assessment & Plan - Diagnosis (1) Back pain Qualifiers: Back pain location: low back pain Chronicity: chronic Back pain laterality: bilateral Sciatica presence: with sciatica Sciatica laterality: sciatica laterality unspecified Qualified Code(s): M54.40 - Lumbago with sciatica, unspecified side; G89.29 - Other chronic pain; G89.29 - Other chronic pain Is this a current diagnosis for this admission?: Yes Plan: Secondary to compression fracture which is acute and also possible osteomyelitis /discitis though this is lower on the differential. Patient has stated he does not want to see interventional pain specialist here until we can speak with his doctor at the [facility] about a plan. For now we are treating his pain with oxycodone 5 mg p.o. every 6 hours as needed pain. This is serving him well. The pain is overall improving. (2) CAP (community acquired pneumonia) Qualifiers: Laterality: right Lung location: unspecified part of lung Qualified Code( s): J18.9 - Pneumonia, unspecified organism Is this a current diagnosis for this admission?: Yes Plan: Continue 5 days of azithromycin and a week of ceftriaxone. Symptoms are improving. Cultures negative to date. (3) Lumbar compression fracture Qualifiers: Encounter type: subsequent encounter Lumbar vertebra fracture level: L3 Fracture type: closed Fracture healing: with routine healing Qualified Code( s): S32.030D - Wedge compression fracture of third lumbar vertebra, subsequent encounter for fracture with routine healing Is this a current diagnosis for this admission?: Yes Plan: I have spoken with the interventional pain service. After we speak with the patient's primary care doctor on Saturday we will recheck out to them again about possible kyphoplasty. (4) Elevated C-reactive protein (CRP) Is this a current diagnosis for this admission?: Yes Plan: Patient has RA, could be related to this. He has also several other acute things going on such as the pneumonia and the compression fracture. Will monitor. (5) Hypoalbuminemia Is this a current diagnosis for this admission?: Yes Plan: She has been sick for the past several months. He seems to be on a downward trajectory overall. His appetite has been poor. He has been eating less. Albumin level is low. Bitemporal wasting evident. His doctor is aware and following per the . (6) Physical deconditioning Is this a current diagnosis for this admission?: Yes Plan: Possible falls at home recently. Multifactorial deconditioning. His doctor is aware. It is 1 of these falls that likely caused his compression fracture. We will reevaluate the situation when he is closer to discharge to see if he needs rehab or home health. Also possible that this patient is moving closer to and may end up meeting hospice before too long. - Time Time Spent with patient: 35 or more minutes Medications reviewed and adjusted accordingly: Yes - Inpatient Certification Based on my medical assessment, after consideration of the patient's comorbidities, presenting symptoms, or acuity I expect that the services needed warrant INPATIENT care.: Yes I certify that my determination is in accordance with my understanding of Medicare's requirements for reasonable and necessary INPATIENT services [42 CFR 412.3e].: Yes Medical Necessity: Need Close Monitoring Due to Risk of Patient Decompensation, Risk of Complication if Not Cared For in Hospital
[2017-10-19] MEDS ORDERED: LACTULOSE SYRUP 20 GM/30 ML UDCUP PO ONE (17:24)
[2017-10-19] MEDS ORDERED: IPRATROPIUM BROMIDE 0.06% NASAL SPRAY 15 ML NASL PRN (17:30)
[2017-10-19] MEDS: NYSTATIN 500000 UNIT/5 ML UDCUP PO SCH (19:48)
[2017-10-20] MEDS: NYSTATIN 500000 UNIT/5 ML UDCUP PO SCH ×4 (00:50→17:52)
[2017-10-20] MEDS: OXYCODONE HCL IR 5 MG TABLET PO PRN (00:51)
[2017-10-20] MEDS: ACETAMINOPHEN 325 MG TABLET PO PRN (05:18)
[2017-10-20] MEDS: LANSOPRAZOLE 15 MG TAB.RAP.DR PO SCH (05:18)
[2017-10-20 06:20] LABS: MEAN CORPUSCULAR HEMOGLOBIN 29.9 pg (27.0-33.4); MEAN CORPUSCULAR HGB CONC 33.3 g/dL (32.0-36.0); MEAN CORPUSCULAR VOLUME 90 fl (80-97); PLATELET COUNT 270 10^3/uL (150-450); RED BLOOD COUNT 3.01 10^6/uL (4.35-5.55); WHITE BLOOD COUNT 7.9 10^3/uL (4.0-10.5)
[2017-10-20] MEDS: ENOXAPARIN SODIUM INJ 40 MG/0.4 ML DISP.SYRIN SUBCUT SCH (09:21)
[2017-10-20] MEDS: NADOLOL 40 MG TABLET PO SCH (09:24)
[2017-10-20] MEDS: FOLIC ACID 1 MG TABLET PO SCH (09:26)
[2017-10-20] MEDS: CYANOCOBALAMIN (VITAMIN B-12) 1,000 MCG TABLET PO SCH (09:26)
[2017-10-20] MEDS: ASPIRIN 81 MG TABLET, ENT COATED PO SCH (09:26)
[2017-10-20] MEDS: MULTIVITAMIN TABLET PO SCH (09:26)
[2017-10-20] MEDS: AZITHROMYCIN 250 MG TABLET PO SCH (09:26)
[2017-10-20] MEDS: CEFTRIAXONE SODIUM 1,000 MG in DEXTROSE 5%-WATER 50 ML IV SCH (09:27)
[2017-10-20] MEDS ORDERED: VIT D3 PO SCH (10:00)
[2017-10-20] MEDS ORDERED: (PENDING PHARMACY ID) (Mirabegron [Myrbetriq] 50 MG) PO SCH (10:00)
[2017-10-20] MEDS ORDERED: MAGNESIUM PO SCH (10:00)
[2017-10-20] MEDS ORDERED: CALCIUM PO SCH (10:00)
--- NOTE | 2017-10-20 18:10 | PDOC PROGRESS REPORT ---
Subjective Progress Note for:: 10/20/17 Subjective:: Patient is feeling a little bit better today. He is not having tingling or numbness in his legs. His right hip is feeling better. The back pain midline is feeling better. No chest pain or difficulty breathing. He has been able to drink his ensures. No fevers or chills. No cough or sputum production. Reason For Visit: PNEUMONIA,L3 COMPRESSION FRACTURE Physical Exam Vital Signs: Temp Pulse Resp BP Pulse Ox 98.3 F 80 16 135/62 H 99 10/20/17 15:15 10/20/17 15:15 10/20/17 15:15 10/20/17 15:15 10/20/17 15:15 Intake & Output 10/19/17 10/20/17 10/21/17 06:59 06:59 06:59 Intake Total 978 1282 580 Output Total 350 700 150 Balance 628 582 430 General appearance: PRESENT: no acute distress, cooperative, thin Head exam: PRESENT: atraumatic, normocephalic Eye exam: ABSENT: conjunctival injection, scleral icterus Mouth exam: PRESENT: moist, tongue midline Respiratory exam: PRESENT: clear to auscultation miguel, unlabored. ABSENT: rales , rhonchi, wheezes Cardiovascular exam: PRESENT: RRR Pulses: PRESENT: normal radial pulses Vascular exam: PRESENT: normal capillary refill GI/Abdominal exam: PRESENT: normal bowel sounds, soft. ABSENT: distended, guarding, tenderness Extremities exam: ABSENT: pedal edema Neurological exam: PRESENT: alert, awake, oriented to person, oriented to place , oriented to situation, CN II-XII grossly intact, other - Sensation to soft touch intact throughout. And has pain in both hips with active leg raise, no pain with passive leg movement. Psychiatric exam: PRESENT: appropriate affect. ABSENT: anxious Skin exam: PRESENT: dry, intact, warm Results Laboratory Results: 10/20/17 05:08 10/18/17 06:13 10/20/17 05:08 WBC 7.9 RBC 3.01 L Hgb 9.0 L Hct 27.0 L MCV 90 MCH 29.9 MCHC 33.3 RDW 15.0 H Plt Count 270 Impressions: Chest X-Ray 10/17/17 07:05 IMPRESSION: Patchy increased density in the right mid lung field most consistent with a patchy pneumonic infiltrate. There is an associated small right pleural effusion. Other findings as noted above. Lumbar Spine MRI 10/17/17 07:05 IMPRESSION: L3 50% compression deformity with anterior loss of height Abnormal disc space fluid at L3-4, with adjacent vertebral body marrow edema. Although this could be sequela of fractures with pseudoarthrosis, superimposed discitis/osteomyelitis could not be excluded. Findings discussed with the emergency room attending physician Hip/Pelvis X-Ray 10/18/17 00:00 IMPRESSION: DEGENERATIVE CHANGES. NO RADIOGRAPHIC EVIDENCE OF ACUTE INJURY. Assessment & Plan - Diagnosis (1) CAP (community acquired pneumonia) Qualifiers: Laterality: right Lung location: unspecified part of lung Qualified Code( s): J18.9 - Pneumonia, unspecified organism Is this a current diagnosis for this admission?: Yes Plan: Clinically improving. We will continue full course of ceftriaxone or equivalent and azithromycin. (2) Lumbar compression fracture Qualifiers: Encounter type: subsequent encounter Lumbar vertebra fracture level: L3 Fracture type: closed Fracture healing: with routine healing Qualified Code( s): S32.030D - Wedge compression fracture of third lumbar vertebra, subsequent encounter for fracture with routine healing Is this a current diagnosis for this admission?: Yes Plan: L3 compression fracture with 50% height loss. Changes seen on MRI that could be consistent with a fracture versus osteomyelitis/discitis. Dr. Fredy Dominique has been consulted to see the patient tomorrow and the patient is requesting that Dr. Dominique speak with his PCP Dr. Guardado at the [facility] prior to any manipulation of the back. The patient may be a kyphoplasty candidate at this time. He also may need biopsy for possible osteomyelitis discitis. His pain is improving with time and with pain management. He has not felt comfortable getting up yet with physical therapy. (3) Elevated C-reactive protein (CRP) Is this a current diagnosis for this admission?: Yes Plan: Patient has RA and it could be related to that, could also be related to acute fracture or osteomyelitis discitis. (4) Hypoalbuminemia Is this a current diagnosis for this admission?: Yes Plan: Per patient and he has been losing weight for the past few months. He has bitemporal wasting. Etiology not entirely clear. If he has osteomyelitis discitis and is systemically ill this could be contributing. If no etiology is found here he will need to follow-up closely with PCP. (5) Physical deconditioning Is this a current diagnosis for this admission?: Yes Plan: Once patient is having less discomfort we can get him up with physical therapy. He has been having multiple falls at home. Perhaps he is just on a downward trajectory without reversible medical problems but this has yet to be determined. - Time Time Spent with patient: 25-34 minutes Medications reviewed and adjusted accordingly: Yes - Inpatient Certification Based on my medical assessment, after consideration of the patient's comorbidities, presenting symptoms, or acuity I expect that the services needed warrant INPATIENT care.: Yes I certify that my determination is in accordance with my understanding of Medicare's requirements for reasonable and necessary INPATIENT services [42 CFR 412.3e].: Yes Medical Necessity: Need Close Monitoring Due to Risk of Patient Decompensation, Risk of Complication if Not Cared For in Hospital
[2017-10-21] MEDS: NYSTATIN 500000 UNIT/5 ML UDCUP PO SCH ×5 (00:06→17:11)
[2017-10-21 04:39] LABS: HEMATOCRIT 27.6 % (37.9-51.0); HEMOGLOBIN 9.3 g/dL (13.5-17.0); MEAN CORPUSCULAR HEMOGLOBIN 29.8 pg (27.0-33.4); MEAN CORPUSCULAR HGB CONC 33.6 g/dL (32.0-36.0); MEAN CORPUSCULAR VOLUME 89 fl (80-97); PLATELET COUNT 279 10^3/uL (150-450); RED BLOOD COUNT 3.11 10^6/uL (4.35-5.55); RED CELL DISTRIBUTION WIDTH 15.1 % (11.5-14.0); WHITE BLOOD COUNT 8.8 10^3/uL (4.0-10.5)
[2017-10-21 05:20] LABS: ANION GAP 12 (5-19); BLOOD UREA NITROGEN 16 mg/dL (7-20); CALCIUM 7.8 mg/dL (8.4-10.2); CARBON DIOXIDE 30 mmol/L (22-30); CHLORIDE 99 mmol/L (98-107); GLUCOSE 94 mg/dL (75-110); POTASSIUM 5.1 mmol/L (3.6-5.0); SODIUM 140.7 mmol/L (137-145)
[2017-10-21] MEDS: LANSOPRAZOLE 15 MG TAB.RAP.DR PO SCH (06:08)
[2017-10-21] MEDS: MAGNESIUM SULFATE/D5W 1 GM/100 ML RTUPB IV SCH ×2 (08:36→11:44)
[2017-10-21] MEDS: MULTIVITAMIN TABLET PO SCH (10:00)
[2017-10-21] MEDS: ASPIRIN 81 MG TABLET, ENT COATED PO SCH (10:00)
[2017-10-21] MEDS: FOLIC ACID 1 MG TABLET PO SCH (10:00)
[2017-10-21] MEDS: AZITHROMYCIN 250 MG TABLET PO SCH (10:00)
[2017-10-21] MEDS: CYANOCOBALAMIN (VITAMIN B-12) 1,000 MCG TABLET PO SCH (10:01)
[2017-10-21] MEDS: ENOXAPARIN SODIUM INJ 40 MG/0.4 ML DISP.SYRIN SUBCUT SCH (10:01)
[2017-10-21] MEDS: NADOLOL 40 MG TABLET PO SCH (10:01)
[2017-10-21] MEDS: CEFTRIAXONE SODIUM 1,000 MG in DEXTROSE 5%-WATER 50 ML IV SCH (10:07)
[2017-10-21] MEDS ORDERED: MAGNESIUM SULFATE/D5W 1 GM/100 ML RTUPB IV SCH (12:30)
[2017-10-21] MEDS ORDERED: GUAIFENESIN 600 MG TABLET.SA PO ONE (12:31)
[2017-10-21 13:08] LABS: ABSOLUTE RETICS # 0.049 10^6/uL (0.028-0.122); RETICULOCYTE COUNT (AUTO) 1.53 % (0.66-2.85)
[2017-10-21] MEDS ORDERED: MAGNESIUM SULFATE/D5W 1 GM/100 ML RTUPB IV ONE (14:00)
[2017-10-21 14:26] LABS: IRON(TIBC) < 10.1 ug/dL (49-181)
[2017-10-21] MEDS: OXYCODONE HCL IR 5 MG TABLET PO PRN (17:38)
--- NOTE | 2017-10-21 19:05 | PROGRESS NOTE E ---
Progress Note NAME: MARCELA MATTHEWS : 1930 AGE: 87Y DATE: 10/21/2017 ROOM: 426 SUBJECTIVE: The patient is currently lying in bed. He states that he feels better today than yesterday. He has not required any pain medicine today, which is much improved. The patient denies any shortness of breath, dizziness. The patient does admit to a significant amount of cough, which can cause pain with his cough, but the patient denies being able to actually produce any sputum. The patient has been afebrile. His blood pressure has been in a good range, and the patient does not voice any specific concerns at this time. REVIEW OF SYSTEMS: The rest of the review of systems is negative. MEDICATIONS: Reviewed. OBJECTIVE: GENERAL: The patient is an 87-year-old male, who is awake, alert. He is oriented to person, place, time and situation. A little hard of hearing. He is quite frail. Does not appear to be distressed. VITAL SIGNS: Temperature is 98.1, pulse 84, respirations 12, blood pressure is 123/58, oxygen saturation 100% on room air. SKIN: Pale, dry. No rash. He is not diaphoretic. HEENT: Pupils are reactive. Conjunctivae pink. There is no evidence of JVP. CVS: Heart is regular. No rub. CHEST: Diminished, symmetrical, unlabored. ABDOMEN: Thin. EXTREMITIES: There is no edema. PSYCHIATRIC: Appropriate affect, pleasant mood. Again, he is hard of hearing. DIAGNOSTICS: Lab values are as follows: Hematology obtained on 10/21/2017: WBCs are 10.1, hemoglobin is 10.3, hematocrit is 27.6, platelet count is 279,000. Chemistry obtained on 10/21/2017: Sodium is 140, potassium 5.1, chloride is 99, carbon dioxide of 30, BUN 16, creatinine is 0.72, glucose 94, calcium is 7.8, magnesium is 1.0. IMPRESSION AND PLAN: 1. HYPOMAGNESEMIA. This is significant. Will replete this and repeat chemistries in the a.m. His potassium is fine. Will follow. 2. COMMUNITY-ACQUIRED PNEUMONIA. Will continue the course of ceftriaxone and azithromycin. The patient has had significant cough and feels there is sputum there, he just cannot express it. We will add Mucinex and follow. 3. LUMBAR COMPRESSION FRACTURE OF L3. The patient will be followed by Dr. Granger. Possible kyphoplasty candidate at this time. Also possible biopsy for osteomyelitis versus diskitis. I do appreciate their input with this. 4. RHEUMATOID ARTHRITIS. The patient's methotrexate is on hold at this moment. 5. HYPOALBUMINEMIA. This appears to be due to poor intake or possible systemic illness, pending findings on biopsy. Will follow. 6. PHYSICAL DECONDITIONING. The patient most likely would benefit from rehab placement. The patient appears to have multiple falls at home, and is overall quite frail. 7. ANEMIA. Pretty substantial anemia. Will add on iron studies. Most likely this is due to underlying chronic disease. DISPOSITION: The patient is a FULL CODE. Pending patient's symptomatology and diagnostic findings, we will reevaluate in the a.m. Time spent on this followup, including assessment, plan, physical examination, patient education and review of records is 25 minutes. DICTATING PHYSICIAN: LINDA JASSO NP [id number] PHY#: [id number] ID: [id number] JOB#: [id number] ACCT: [id number] cc: > MTDD
[2017-10-21] MEDS: GUAIFENESIN 600 MG TABLET.SA PO SCH (21:05)
[2017-10-22] MEDS: NYSTATIN 500000 UNIT/5 ML UDCUP PO SCH ×3 (05:22→19:25)
[2017-10-22] MEDS: LANSOPRAZOLE 15 MG TAB.RAP.DR PO SCH (05:22)
[2017-10-22 06:12] LABS: HEMATOCRIT 28.3 % (37.9-51.0); HEMOGLOBIN 9.4 g/dL (13.5-17.0); MEAN CORPUSCULAR HEMOGLOBIN 29.5 pg (27.0-33.4); MEAN CORPUSCULAR HGB CONC 33.1 g/dL (32.0-36.0); MEAN CORPUSCULAR VOLUME 89 fl (80-97); PLATELET COUNT 271 10^3/uL (150-450); RED BLOOD COUNT 3.17 10^6/uL (4.35-5.55); RED CELL DISTRIBUTION WIDTH 15.3 % (11.5-14.0)
[2017-10-22 06:48] LABS: ANION GAP 10 (5-19); BLOOD UREA NITROGEN 24 mg/dL (7-20); CARBON DIOXIDE 30 mmol/L (22-30); CHLORIDE 99 mmol/L (98-107); GLUCOSE 101 mg/dL (75-110); POTASSIUM 5.3 mmol/L (3.6-5.0); SODIUM 139.3 mmol/L (137-145)
[2017-10-22] MEDS: CEFTRIAXONE SODIUM 1,000 MG in DEXTROSE 5%-WATER 50 ML IV SCH (11:03)
[2017-10-22] MEDS: NADOLOL 40 MG TABLET PO SCH (11:03)
[2017-10-22] MEDS: MULTIVITAMIN TABLET PO SCH (11:07)
[2017-10-22] MEDS: FOLIC ACID 1 MG TABLET PO SCH (11:08)
[2017-10-22] MEDS: ENOXAPARIN SODIUM INJ 40 MG/0.4 ML DISP.SYRIN SUBCUT SCH (11:08)
[2017-10-22] MEDS: CYANOCOBALAMIN (VITAMIN B-12) 1,000 MCG TABLET PO SCH (11:08)
[2017-10-22] MEDS: GUAIFENESIN 600 MG TABLET.SA PO SCH ×2 (11:09→21:02)
[2017-10-22] MEDS: ASPIRIN 81 MG TABLET, ENT COATED PO SCH (11:09)
--- NOTE | 2017-10-22 17:10 | PDOC PROGRESS REPORT ---
Subjective Progress Note for:: 10/22/17 Subjective:: Patient is seen resting in bed. He is extremely hard of hearing. He does respond appropriately to questions. He is awake, alert and oriented 3. He denies any chest pain, shortness of breath or cough. He denies any fever or chills. His any nausea, vomiting or diarrhea. He denies any abdominal pain. He admits to his appetite continuing to be poor. Complains of severe back pain whenever he is moved. He has been unable to tolerate any type of physical therapy due to pain. Presently there is no family at the bedside. Reason For Visit: PNEUMONIA,L3 COMPRESSION FRACTURE Physical Exam Vital Signs: Temp Pulse Resp BP Pulse Ox 98.2 F 86 18 110/58 L 92 10/22/17 00:11 10/22/17 00:11 10/22/17 00:11 10/22/17 00:11 10/22/17 00:11 Intake & Output 10/21/17 10/22/17 10/23/17 06:59 06:59 06:59 Intake Total 760 977 Output Total 825 650 Balance -65 327 Weight 66 kg General appearance: PRESENT: no acute distress, thin, well-developed Head exam: PRESENT: atraumatic, normocephalic Eye exam: PRESENT: conjunctiva pale, EOMI, PERRLA. ABSENT: scleral icterus Ear exam: PRESENT: normal external ear exam Mouth exam: PRESENT: moist, tongue midline Neck exam: ABSENT: carotid bruit, JVD, lymphadenopathy, thyromegaly Respiratory exam: PRESENT: clear to auscultation miguel, symmetrical, unlabored. ABSENT: rales, rhonchi, wheezes Cardiovascular exam: PRESENT: RRR. ABSENT: diastolic murmur, rubs, systolic murmur Pulses: PRESENT: normal dorsalis pedis pul Vascular exam: PRESENT: normal capillary refill GI/Abdominal exam: PRESENT: normal bowel sounds, soft. ABSENT: distended, guarding, mass, organolmegaly, rebound, tenderness Rectal exam: PRESENT: deferred Extremities exam: PRESENT: full ROM, tenderness - Lumbar spine. ABSENT: calf tenderness, clubbing, pedal edema Musculoskeletal exam: PRESENT: full ROM, tenderness Neurological exam: PRESENT: alert, awake, oriented to person, oriented to place , oriented to time, oriented to situation, CN II-XII grossly intact. ABSENT: motor sensory deficit Psychiatric exam: PRESENT: appropriate affect, normal mood. ABSENT: homicidal ideation, suicidal ideation Skin exam: PRESENT: dry, intact, warm. ABSENT: cyanosis, rash Results Laboratory Results: 10/22/17 04:48 10/22/17 04:48 10/22/17 10/22/17 04:48 04:48 WBC 8.0 RBC 3.17 L Hgb 9.4 L Hct 28.3 L MCV 89 MCH 29.5 MCHC 33.1 RDW 15.3 H Plt Count 271 Sodium 139.3 Potassium 5.3 H Chloride 99 Carbon Dioxide 30 Anion Gap 10 BUN 24 H Creatinine 0.73 Est GFR ( Amer) > 60 Est GFR (Non-Af Amer) > 60 Glucose 101 Calcium 8.0 L Magnesium 2.0 Impressions: Chest X-Ray 10/17/17 07:05 IMPRESSION: Patchy increased density in the right mid lung field most consistent with a patchy pneumonic infiltrate. There is an associated small right pleural effusion. Other findings as noted above. Lumbar Spine MRI 10/17/17 07:05 IMPRESSION: L3 50% compression deformity with anterior loss of height Abnormal disc space fluid at L3-4, with adjacent vertebral body marrow edema. Although this could be sequela of fractures with pseudoarthrosis, superimposed discitis/osteomyelitis could not be excluded. Findings discussed with the emergency room attending physician Hip/Pelvis X-Ray 10/18/17 00:00 IMPRESSION: DEGENERATIVE CHANGES. NO RADIOGRAPHIC EVIDENCE OF ACUTE INJURY. Assessment & Plan - Diagnosis (1) Hypoxia Is this a current diagnosis for this admission?: Yes Plan: Patient was found to be hypoxemic with room air oxygen saturation of 88%. Chest x-ray shows patchy infiltrate in the right middle lobe. He has received 5 days of IV ceftriaxone. He has no cough or symptoms of pneumonia. He has had no leukocytosis. Discussed case with violent infectious disease physician, Dr. Borden. She recommends stopping the IV ceftriaxone. We will add IS. He is mostly flat on his back because of back pain. Will be at risk for atelectasis and pneumonia. (2) CAP (community acquired pneumonia) Qualifiers: Laterality: right Lung location: unspecified part of lung Qualified Code( s): J18.9 - Pneumonia, unspecified organism Is this a current diagnosis for this admission?: Yes Plan: As above. (3) Back pain Qualifiers: Back pain location: low back pain Chronicity: chronic Back pain laterality: bilateral Sciatica presence: with sciatica Sciatica laterality: sciatica laterality unspecified Qualified Code(s): M54.40 - Lumbago with sciatica, unspecified side; G89.29 - Other chronic pain; G89.29 - Other chronic pain Is this a current diagnosis for this admission?: Yes Plan: MRI shows endplate compression loss of 50% with disc deformity at L3-L4 with adjacent fluid collection. He asked pain management to review this as well discuss this case with Dr. Mederos, pain management. He has concerns regarding a discitis L3-L4. He would not want to proceed with any kyphoplasty procedure until this could be ruled out. The patient has had in over 100 pound weight loss in the last year and a half along with severe debilitating back pain over the last year. He does have a history of methotrexate use for rheumatoid arthritis. He is also had epidural injections into his lumbar spine last being approximately 1 year ago. Case was discussed with daniel infectious disease, Dr. Borden, who recommends 48 hr antibiotic free period and then proceed with CT- guided biopsy/culture. Dr. Lassiter, interventional radiology, will review his films to see if this is a possibility here. If so we will proceed with this on Saturday. Plan was discussed with patient's and daughter who came after an initial physical exam. (4) Elevated erythrocyte sedimentation rate Is this a current diagnosis for this admission?: Yes (5) Hypoalbuminemia Is this a current diagnosis for this admission?: Yes Plan: Has had poor oral intake over 100 pound weight loss in last 18 months. (6) Lumbar compression fracture Qualifiers: Encounter type: subsequent encounter Lumbar vertebra fracture level: L3 Fracture type: closed Fracture healing: with routine healing Qualified Code( s): S32.030D - Wedge compression fracture of third lumbar vertebra, subsequent encounter for fracture with routine healing Is this a current diagnosis for this admission?: Yes Plan: As above. (7) Physical deconditioning Is this a current diagnosis for this admission?: Yes Plan: Patient is unable to tolerate any type of physical therapy at the present time due to severe debilitating back pain. High risk for skin breakdown in future pneumonias due to immobility. (8) Protein-calorie malnutrition, moderate Is this a current diagnosis for this admission?: Yes Plan: Liberalize diet and Ensure supplements. He again has had 100 pound weight loss in the last 18 months. - Time Time Spent with patient: 25-34 minutes Total Critical Time (Minutes): 30 Medications reviewed and adjusted accordingly: Yes
--- NOTE | 2017-10-22 21:30 | CONSULTATION REPORT E ---
Consultation Report NAME: MARCELA MATTHEWS : 1930 AGE: 87Y DATE: 10/22/17 426 B TO: HARSHIL BLACKMON M.D. FROM: MAGGIE ISBELL M.D. Requesting Physician REASON FOR CONSULTATION: Concern for compression fracture versus diskitis. CHIEF COMPLAINT: Lower back pain. HISTORY OF PRESENT ILLNESS: The patient is an 87-year-old male with history of chronic back pain, rheumatoid arthritis on methotrexate, recent multiple falls who presented on 10/17 to [facility] given increasing lower extremity pain. He has had back pain for many years, has had multiple imaging studies over the years and has been seen by orthopedic surgery. Pain has been controlled through medications, however, in the last few months since September, he has been experiencing worsening back pain and has had multiple falls. He notes that he has difficulty doing yard work and walking around the house. He has been using a cane but has not required a walker. He notes the pain can be only in his back when he stands and down his legs in the front and back. He denies urinary, bowel or bladder incontinence. He denies any fevers or chills. He notes that he has had a productive cough for the last few days and has been treated for pneumonia with antibiotics while here since 10/17. He has had multiple issues with infections in the past. He notes the pain is intermittent, worse with standing, sharp, can be shooting down both legs, is unbearable but he is pain free when he lies flat. He has had an MRI completed while he has been in house as well and remains on antibiotics. PAST MEDICAL HISTORY: 1. Prior history of skin cancer, basal cell, per history. 2. GERD. 3. Prior history of osteoarthritis. PAST SURGICAL HISTORY: 1. Prior orthopedic surgery on his hand. 2. Hernia repair. 3. Appendectomy. SOCIAL HISTORY: Denies smoking, alcohol or illicits. FAMILY HISTORY: Noncontributory. MEDICATIONS: See in house MAR. Currently not requiring pain medication. Previously at home on aspirin and methotrexate. ALLERGIES: Denies any known drug allergies. REVIEW OF SYSTEMS: Unchanged from his original HPI. ASSESSMENT: Patient with concern for diskitis versus osteomyelitis and compression fracture. PLAN: After review of the MRI, the read appears more consistent with diskitis versus osteo than compression fracture, given minor marrow changes on the MRI. I would recommend continuing pain control and discussing with infectious disease escalation of his antibiotic regimen that is being continued for his community acquired pneumonia along with the possibility of diskitis. His ESR remains elevated but also has history of RA and recent pneumonia. It is unclear if this is related to the possibility of diskitis. I would consider continued pain control only as needed, given his age, and continue the Tylenol and avoid opioids as possible. We have discussed using a back brace. That may be beneficial but he declines. I would continue physical therapy once he improves to help with his deconditioning. I would avoid any surgical procedures, given this appears to be more to be diskitis so would not consider kyphoplasty at this time. If any questions, please feel free to contact the pain management team. Thank you for the consult. DICTATING PHYSICIAN: HARSHIL BLACKMON M.D. [id number] PHY#: [id number] ID: [id number] JOB#: [id number] ACCT: [id number] cc:HARSHIL BLACKMON M.D. > MTDD
[2017-10-23] MEDS: NYSTATIN 500000 UNIT/5 ML UDCUP PO SCH ×5 (02:30→21:20)
[2017-10-23] MEDS: LANSOPRAZOLE 15 MG TAB.RAP.DR PO SCH (05:08)
[2017-10-23] MEDS ORDERED: LACTULOSE SYRUP 20 GM/30 ML UDCUP PO ONE (05:13)
[2017-10-23] MEDS: CYANOCOBALAMIN (VITAMIN B-12) 1,000 MCG TABLET PO SCH (12:33)
[2017-10-23] MEDS: MULTIVITAMIN TABLET PO SCH (12:34)
[2017-10-23] MEDS: FOLIC ACID 1 MG TABLET PO SCH (12:34)
[2017-10-23] MEDS: ASPIRIN 81 MG TABLET, ENT COATED PO SCH (12:34)
[2017-10-23] MEDS: GUAIFENESIN 600 MG TABLET.SA PO SCH ×2 (12:35→21:19)
[2017-10-23] MEDS: NADOLOL 40 MG TABLET PO SCH (12:35)
[2017-10-23] MEDS: ENOXAPARIN SODIUM INJ 40 MG/0.4 ML DISP.SYRIN SUBCUT SCH (12:36)
[2017-10-24] MEDS: NYSTATIN 500000 UNIT/5 ML UDCUP PO SCH ×4 (05:13→23:07)
[2017-10-24] MEDS: LANSOPRAZOLE 15 MG TAB.RAP.DR PO SCH (05:16)
[2017-10-24 07:09] LABS: ANION GAP 13 (5-19); BLOOD UREA NITROGEN 32 mg/dL (7-20); CALCIUM 8.9 mg/dL (8.4-10.2); CARBON DIOXIDE 30 mmol/L (22-30); CHLORIDE 98 mmol/L (98-107); GLUCOSE 93 mg/dL (75-110); POTASSIUM 5.3 mmol/L (3.6-5.0)
[2017-10-24] MEDS: NADOLOL 40 MG TABLET PO SCH (12:04)
[2017-10-24] MEDS: GUAIFENESIN 600 MG TABLET.SA PO SCH ×2 (12:05→21:55)
[2017-10-24] MEDS: FOLIC ACID 1 MG TABLET PO SCH (12:05)
[2017-10-24] MEDS: MULTIVITAMIN TABLET PO SCH (12:05)
[2017-10-24] MEDS: CYANOCOBALAMIN (VITAMIN B-12) 1,000 MCG TABLET PO SCH (12:05)
[2017-10-24] MEDS: ENOXAPARIN SODIUM INJ 40 MG/0.4 ML DISP.SYRIN SUBCUT SCH (13:25)
[2017-10-24] MEDS: ASPIRIN 81 MG TABLET, ENT COATED PO SCH (13:25)
[2017-10-24] MEDS ORDERED: GLUCAGON,HUMAN RECOMB 1 MG INJ SUBCUT PRN (14:02)
[2017-10-24] MEDS ORDERED: DEXTROSE 50%-WATER 25 GM/50 ML DISP.SYRIN IV PRN ×2 (14:02)
[2017-10-24] MEDS ORDERED: DEXTROSE 40% GEL 15 GM TUBE PO PRN ×2 (14:02)
--- NOTE | 2017-10-24 15:26 | PDOC PROGRESS REPORT ---
Subjective Progress Note for:: 10/24/17 Subjective:: This is a 87 years old male patient admitted for worsening chronic back pain and lower extremity pain. Patient has also history of recurrent falls. His MRI shows endplate compression fracture with loss of 50% with disc deformity at L3-L4 with adjacent fluid collection. I discussed the case with Dr. Swann who scheduled him for biopsy of the L3-L4 disc to rule out discitis. Reason For Visit: PNEUMONIA,L3 COMPRESSION FRACTURE Physical Exam Vital Signs: Temp Pulse Resp BP Pulse Ox 97.8 F 104 H 18 121/57 L 100 10/24/17 11:00 10/24/17 11:00 10/24/17 11:00 10/24/17 11:00 10/24/17 11:00 Intake & Output 10/23/17 10/24/17 10/25/17 06:59 06:59 06:59 Intake Total 1200 1114 Output Total 850 300 Balance 350 814 General appearance: PRESENT: no acute distress, well-developed, well-nourished Head exam: PRESENT: atraumatic, normocephalic Eye exam: PRESENT: conjunctiva pink, EOMI, PERRLA. ABSENT: scleral icterus Neck exam: ABSENT: carotid bruit, JVD, lymphadenopathy, thyromegaly Respiratory exam: PRESENT: clear to auscultation miguel. ABSENT: rales, rhonchi, wheezes Cardiovascular exam: PRESENT: RRR. ABSENT: diastolic murmur, rubs, systolic murmur GI/Abdominal exam: PRESENT: normal bowel sounds, soft. ABSENT: distended, guarding, mass, organolmegaly, rebound, tenderness Results Laboratory Results: 10/22/17 04:48 10/24/17 05:51 10/24/17 05:51 Sodium 141.0 Potassium 5.3 H Chloride 98 Carbon Dioxide 30 Anion Gap 13 BUN 32 H Creatinine 0.85 Est GFR ( Amer) > 60 Est GFR (Non-Af Amer) > 60 Glucose 93 Calcium 8.9 Impressions: Chest X-Ray 10/17/17 07:05 IMPRESSION: Patchy increased density in the right mid lung field most consistent with a patchy pneumonic infiltrate. There is an associated small right pleural effusion. Other findings as noted above. Lumbar Spine MRI 10/17/17 07:05 IMPRESSION: L3 50% compression deformity with anterior loss of height Abnormal disc space fluid at L3-4, with adjacent vertebral body marrow edema. Although this could be sequela of fractures with pseudoarthrosis, superimposed discitis/osteomyelitis could not be excluded. Findings discussed with the emergency room attending physician Hip/Pelvis X-Ray 10/18/17 00:00 IMPRESSION: DEGENERATIVE CHANGES. NO RADIOGRAPHIC EVIDENCE OF ACUTE INJURY. Assessment & Plan - Diagnosis (1) CAP (community acquired pneumonia) Qualifiers: Laterality: right Lung location: unspecified part of lung Qualified Code( s): J18.9 - Pneumonia, unspecified organism Is this a current diagnosis for this admission?: Yes Plan: Continue current regimen (2) Elevated C-reactive protein (CRP) Is this a current diagnosis for this admission?: Yes Plan: Patient scheduled for biopsy (3) Lumbar compression fracture Qualifiers: Encounter type: subsequent encounter Lumbar vertebra fracture level: L3 Fracture type: closed Fracture healing: with routine healing Qualified Code( s): S32.030D - Wedge compression fracture of third lumbar vertebra, subsequent encounter for fracture with routine healing Is this a current diagnosis for this admission?: Yes Plan: Since MRI revealed L3-L4 disc fluid collection patient will have CT-guided biopsy and aspiration. We will keep him n.p.o., hold Lovenox and aspirin. PT/INR in a.m. - Time Time Spent with patient: 25-34 minutes
[2017-10-25] MEDS: NYSTATIN 500000 UNIT/5 ML UDCUP PO SCH ×4 (05:05→23:43)
[2017-10-25] MEDS: LANSOPRAZOLE 15 MG TAB.RAP.DR PO SCH (05:08)
[2017-10-25 07:06] LABS: PROTHROMBIN TIME 15.8 SEC (11.4-15.4)
[2017-10-25 07:09] LABS: ANION GAP 9 (5-19); BLOOD UREA NITROGEN 31 mg/dL (7-20); CALCIUM 8.8 mg/dL (8.4-10.2); CARBON DIOXIDE 32 mmol/L (22-30); CHLORIDE 99 mmol/L (98-107); GLUCOSE 98 mg/dL (75-110); POTASSIUM 5.6 mmol/L (3.6-5.0); SODIUM 139.9 mmol/L (137-145)
[2017-10-25] MEDS: CYANOCOBALAMIN (VITAMIN B-12) 1,000 MCG TABLET PO SCH (09:39)
[2017-10-25] MEDS: FOLIC ACID 1 MG TABLET PO SCH (09:39)
[2017-10-25] MEDS: MULTIVITAMIN TABLET PO SCH (09:39)
[2017-10-25] MEDS: ASPIRIN 81 MG TABLET, ENT COATED PO SCH (09:39)
[2017-10-25] MEDS: GUAIFENESIN 600 MG TABLET.SA PO SCH ×2 (09:39→22:23)
[2017-10-25] MEDS ORDERED: MIDAZOLAM 2 MG/2 ML INJ ONE (11:20)
[2017-10-25] MEDS ORDERED: LIDOCAINE 1% INJ-PF (10 MG/ML) 30 ML SDV ONE (11:20)
[2017-10-25] MEDS ORDERED: FENTANYL CITRATE INJ/PF 100 MCG/2 ML AMPUL ONE (11:20)
--- NOTE | 2017-10-25 12:59 | RADIOLOGY REPORT (SQ) ---
EXAM DESCRIPTION: CT FINE NEEDLE ASPIRATION COMPLETED DATE/TIME: 10/25/2017 12:32 pm REASON FOR STUDY: diskitis COMPARISON: None. TECHNIQUE: After obtaining informed consent and explaining the risks and benefits of IV PAIN CONTROL ,the patient agreed to the procedure. The patient was brought to the CT suite and was placed prone on the CT gurney. The patient was preppe d and draped in the usual sterile fashion . Axial images were obtained for targeting of theL3-4 disc space.. An appropriate access site was selected. IV pain control was administered and physician dire ction by the registered nurse using 25 micrograms of fentanyl. Physiologic monitoring was provided be fore, during, and after sedation. The total sedation time was 10 minutes. Documentation face to face time, the performing proceduralist, spent monitoring the patient: 10minute s. Noncontrasted CT of the liver was performed to localize an approach for the L3-4 disc space aspirati on. A percutaneous site was marked. Time out was performed. After skin prep and local lidocaine for skin and deep tissue anesthesia, an 18 gauge needle was used to aspirate 10 mL of cloudy yellow fluid from the L3-4 disc space. A specimen was sent to the lab f or cytology and crystal analysis, a sample was also sent to the lab to microbiology for Gram stain cu lture and sensitivity. No immediate postprocedure complications. Total of [address] fluoro was used. 63 CT Fluoroscopic images were obtained and saved to PACS. All CT scanners at this facility use dose modulation, iterative reconstruction, and/or weight based d osing when appropriate to reduce radiation dose to as low as reasonably achievable (ALARA). [facility]: Dose Right [facility]: CareDose [facility]: Dose Right [facility]: Teradose 4D [facility]: [employer] RADIATION DOSE: CT Rad equipment meets quality standard of care and radiation dose reduction techniq ues were employed. CTDIvol: 4.0 - 11.6 mGy. DLP: 215 mGy-cm. mGy. LIMITATIONS: None. FINDINGS: CT guided L3-4 disc space aspiration. A specimen of fluid was sent to cytology, a specime n of fluid was sent to microbiology. IMPRESSION: CT GUIDED L3-4 DISC SPACE ASPIRATION PERFORMED ABOVE. MICROBIOLOGY AND CYTOLOGY PEN DING. NO IMMEDIATE COMPLICATIONS. COMMENT: Patient medication list reviewed:Yes- Quality ID# [id number]:Eligible professional attests to docu menting in the medical record they obtained, updated, or reviewed the patient's current medications.. Quality ID [id number]: Final reports for procedures using fluoroscopy that document radiation exposure checo cristian, or exposure time and number of fluorographic images (if radiation exposure indices are not avail able) TECHNICAL DOCUMENTATION: JOB ID: [id number] Quality ID # [id number]: Final reports with documentation of one or more dose reduction techniques (e.g., A utomated exposure control, adjustment of the mA and/or kV according to patient size, use of iterative reconstruction technique) 2010 [employer]- All Rights Reserved Reading location - IP/workstation name: [email or web address]
[2017-10-25 13:07] LABS: CALCIUM PYROPHOSPHATE CRYSTALS Intra&Extracellular
[2017-10-25] MEDS ORDERED: VANCOMYCIN HCL 0 MG in DEXTROSE 5%-WATER 250 ML IV NR (13:45)
--- NOTE | 2017-10-25 13:52 | PDOC PROGRESS REPORT ---
Subjective Progress Note for:: 10/25/17 Subjective:: Patient just has arrived from radiology unit after having CT-guided biopsy of the L3-L4 disc space. Reportedly about 10 mL of cloudy yellow fluid is aspirated. I have suggested starting the patient on vancomycin and cefepime. I seen patient resting in bed comfortably he is awake alert and is not in pain or distress. Reason For Visit: PNEUMONIA,L3 COMPRESSION FRACTURE Physical Exam Vital Signs: Temp Pulse Resp BP Pulse Ox 98.5 F 81 14 122/65 97 10/25/17 12:00 10/25/17 12:00 10/25/17 12:00 10/25/17 12:00 10/25/17 12:00 Intake & Output 10/24/17 10/25/17 10/26/17 06:59 06:59 06:59 Intake Total 1114 636 Output Total 300 650 Balance 814 -14 Weight 65.5 kg General appearance: PRESENT: no acute distress, well-developed, well-nourished Head exam: PRESENT: atraumatic, normocephalic Mouth exam: PRESENT: moist, tongue midline Respiratory exam: PRESENT: clear to auscultation miguel. ABSENT: rales, rhonchi, wheezes Cardiovascular exam: PRESENT: RRR. ABSENT: diastolic murmur, rubs, systolic murmur GI/Abdominal exam: PRESENT: normal bowel sounds, soft. ABSENT: distended, guarding, mass, organolmegaly, rebound, tenderness Neurological exam: PRESENT: alert, awake, oriented to time, oriented to situation Psychiatric exam: PRESENT: normal mood Results Laboratory Results: 10/22/17 04:48 10/25/17 05:22 10/25/17 10/25/17 05:22 12:15 Sodium 139.9 Potassium 5.6 H Chloride 99 Carbon Dioxide 32 H Anion Gap 9 BUN 31 H Creatinine 0.82 Est GFR ( Amer) > 60 Est GFR (Non-Af Amer) > 60 Glucose 98 Calcium 8.8 Fluid Type Fluid Source Impressions: Chest X-Ray 10/17/17 07:05 IMPRESSION: Patchy increased density in the right mid lung field most consistent with a patchy pneumonic infiltrate. There is an associated small right pleural effusion. Other findings as noted above. Lumbar Spine MRI 10/17/17 07:05 IMPRESSION: L3 50% compression deformity with anterior loss of height Abnormal disc space fluid at L3-4, with adjacent vertebral body marrow edema. Although this could be sequela of fractures with pseudoarthrosis, superimposed discitis/osteomyelitis could not be excluded. Findings discussed with the emergency room attending physician Hip/Pelvis X-Ray 10/18/17 00:00 IMPRESSION: DEGENERATIVE CHANGES. NO RADIOGRAPHIC EVIDENCE OF ACUTE INJURY. Needle Aspiration CT 10/25/17 00:00 IMPRESSION: CT GUIDED L3-4 DISC SPACE ASPIRATION PERFORMED ABOVE. MICROBIOLOGY AND CYTOLOGY PENDING. NO IMMEDIATE COMPLICATIONS. Assessment & Plan - Diagnosis (1) CAP (community acquired pneumonia) Qualifiers: Laterality: right Lung location: unspecified part of lung Qualified Code( s): J18.9 - Pneumonia, unspecified organism Is this a current diagnosis for this admission?: Yes Plan: Treated (2) Elevated C-reactive protein (CRP) Is this a current diagnosis for this admission?: Yes Plan: Patient scheduled for biopsy (3) Lumbar compression fracture Qualifiers: Encounter type: subsequent encounter Lumbar vertebra fracture level: L3 Fracture type: closed Fracture healing: with routine healing Qualified Code( s): S32.030D - Wedge compression fracture of third lumbar vertebra, subsequent encounter for fracture with routine healing Is this a current diagnosis for this admission?: Yes Plan: Since MRI revealed L3-L4 disc fluid collection patient will have CT-guided biopsy and aspiration. We will keep him n.p.o., hold Lovenox and aspirin. PT/INR in a.m. (4) Back pain Qualifiers: Back pain location: low back pain Chronicity: chronic Back pain laterality: bilateral Sciatica presence: with sciatica Sciatica laterality: sciatica laterality unspecified Qualified Code(s): M54.40 - Lumbago with sciatica, unspecified side; G89.29 - Other chronic pain; G89.29 - Other chronic pain Is this a current diagnosis for this admission?: Yes Plan: His CT scan of the lumbar spine shows fluid collection at L3-L4 space which is aspirated today and it produced cloudy yellowish fluid. Patient has been started on vancomycin and cefepime. - Time Time Spent with patient: 25-34 minutes
[2017-10-25] MEDS: NADOLOL 40 MG TABLET PO SCH (14:16)
[2017-10-25] MEDS: CEFEPIME 2 GM/D5W RTU 2 GM/50 ML RTUPB IV SCH (17:44)
[2017-10-26] MEDS: LANSOPRAZOLE 15 MG TAB.RAP.DR PO SCH (06:24)
[2017-10-26] MEDS: CEFEPIME 2 GM/D5W RTU 2 GM/50 ML RTUPB IV SCH ×2 (06:24→17:29)
[2017-10-26] MEDS: NYSTATIN 500000 UNIT/5 ML UDCUP PO SCH ×2 (06:24→11:07)
[2017-10-26] MEDS ORDERED: VANCOMYCIN HCL 0 MG in DEXTROSE 5%-WATER 250 ML IV NR (10:15)
[2017-10-26] MEDS: GUAIFENESIN 600 MG TABLET.SA PO SCH ×2 (10:30→21:33)
[2017-10-26] MEDS: MULTIVITAMIN TABLET PO SCH (10:30)
[2017-10-26] MEDS: ASPIRIN 81 MG TABLET, ENT COATED PO SCH (10:30)
[2017-10-26] MEDS: FOLIC ACID 1 MG TABLET PO SCH (10:30)
[2017-10-26] MEDS: CYANOCOBALAMIN (VITAMIN B-12) 1,000 MCG TABLET PO SCH (10:30)
[2017-10-26] MEDS: NADOLOL 40 MG TABLET PO SCH (11:08)
[2017-10-26] MEDS ORDERED: VANCOMYCIN HCL 500 MG in NORMAL SALINE 100 ML IV ONE (12:00)
--- NOTE | 2017-10-26 12:05 | PDOC PROGRESS REPORT ---
Subjective Progress Note for:: 10/26/17 Subjective:: I found patient sleeping quietly. No significant change overnight. Patient restarted on aspirin and Lovenox. Reason For Visit: PNEUMONIA,L3 COMPRESSION FRACTURE Physical Exam Vital Signs: Temp Pulse Resp BP Pulse Ox 97.8 F 86 16 137/63 H 97 10/26/17 09:22 10/26/17 09:22 10/26/17 09:22 10/26/17 09:22 10/26/17 09:22 Intake & Output 10/25/17 10/26/17 10/27/17 06:59 06:59 06:59 Intake Total 636 639 Output Total 650 550 Balance -14 89 Weight 65.5 kg General appearance: PRESENT: no acute distress Neck exam: ABSENT: carotid bruit, JVD, lymphadenopathy, thyromegaly Respiratory exam: PRESENT: clear to auscultation miguel. ABSENT: rales, rhonchi, wheezes Cardiovascular exam: PRESENT: RRR. ABSENT: diastolic murmur, rubs, systolic murmur Results Laboratory Results: 10/22/17 04:48 10/25/17 05:22 10/25/17 12:15 Fluid Type Fluid Source Impressions: Chest X-Ray 10/17/17 07:05 IMPRESSION: Patchy increased density in the right mid lung field most consistent with a patchy pneumonic infiltrate. There is an associated small right pleural effusion. Other findings as noted above. Lumbar Spine MRI 10/17/17 07:05 IMPRESSION: L3 50% compression deformity with anterior loss of height Abnormal disc space fluid at L3-4, with adjacent vertebral body marrow edema. Although this could be sequela of fractures with pseudoarthrosis, superimposed discitis/osteomyelitis could not be excluded. Findings discussed with the emergency room attending physician Hip/Pelvis X-Ray 10/18/17 00:00 IMPRESSION: DEGENERATIVE CHANGES. NO RADIOGRAPHIC EVIDENCE OF ACUTE INJURY. Needle Aspiration CT 10/25/17 00:00 IMPRESSION: CT GUIDED L3-4 DISC SPACE ASPIRATION PERFORMED ABOVE. MICROBIOLOGY AND CYTOLOGY PENDING. NO IMMEDIATE COMPLICATIONS. Assessment & Plan - Diagnosis (1) CAP (community acquired pneumonia) Qualifiers: Laterality: right Lung location: unspecified part of lung Qualified Code( s): J18.9 - Pneumonia, unspecified organism Is this a current diagnosis for this admission?: Yes Plan: Treated (2) Elevated C-reactive protein (CRP) Is this a current diagnosis for this admission?: Yes (3) Lumbar compression fracture Qualifiers: Encounter type: subsequent encounter Lumbar vertebra fracture level: L3 Fracture type: closed Fracture healing: with routine healing Qualified Code( s): S32.030D - Wedge compression fracture of third lumbar vertebra, subsequent encounter for fracture with routine healing Is this a current diagnosis for this admission?: Yes Plan: Since MRI revealed L3-L4 disc fluid collection patient will have CT-guided biopsy and aspiration. We will keep him n.p.o., hold Lovenox and aspirin. PT/INR in a.m. (4) Back pain Qualifiers: Back pain location: low back pain Chronicity: chronic Back pain laterality: bilateral Sciatica presence: with sciatica Sciatica laterality: sciatica laterality unspecified Qualified Code(s): M54.40 - Lumbago with sciatica, unspecified side; G89.29 - Other chronic pain; G89.29 - Other chronic pain Is this a current diagnosis for this admission?: Yes Plan: His CT scan of the lumbar spine shows fluid collection at L3-L4 space which is aspirated today and it produced cloudy yellowish fluid. Patient has been started on vancomycin and cefepime. Continue current regimen - Time Time Spent with patient: 25-34 minutes
[2017-10-26] MEDS ORDERED: SODIUM POLYSTYRENE SULFONATE 15 GM/60 ML PO ONE (12:45)
[2017-10-26] MEDS: VANCOMYCIN HCL 500 MG in NORMAL SALINE 100 ML IV SCH (21:33)
[2017-10-27 06:19] LABS: ANION GAP 11 (5-19); BLOOD UREA NITROGEN 27 mg/dL (7-20); CALCIUM 8.4 mg/dL (8.4-10.2); CARBON DIOXIDE 27 mmol/L (22-30); CHLORIDE 101 mmol/L (98-107); GLUCOSE 94 mg/dL (75-110); POTASSIUM 4.2 mmol/L (3.6-5.0); SODIUM 139.3 mmol/L (137-145)
[2017-10-27] MEDS: CEFEPIME 2 GM/D5W RTU 2 GM/50 ML RTUPB IV SCH ×2 (06:20→17:16)
[2017-10-27] MEDS: LANSOPRAZOLE 15 MG TAB.RAP.DR PO SCH (06:21)
[2017-10-27] MEDS: ASPIRIN 81 MG TABLET, ENT COATED PO SCH (09:17)
[2017-10-27] MEDS: GUAIFENESIN 600 MG TABLET.SA PO SCH ×2 (09:17→21:37)
[2017-10-27] MEDS: MULTIVITAMIN TABLET PO SCH (09:17)
[2017-10-27] MEDS: CYANOCOBALAMIN (VITAMIN B-12) 1,000 MCG TABLET PO SCH (09:17)
[2017-10-27] MEDS: FOLIC ACID 1 MG TABLET PO SCH (09:17)
[2017-10-27] MEDS: ENOXAPARIN SODIUM INJ 40 MG/0.4 ML DISP.SYRIN SUBCUT SCH (09:18)
[2017-10-27] MEDS: NADOLOL 40 MG TABLET PO SCH (09:18)
[2017-10-27] MEDS: VANCOMYCIN HCL 500 MG in NORMAL SALINE 100 ML IV SCH ×2 (10:17→21:37)
--- NOTE | 2017-10-27 15:02 | PDOC PROGRESS REPORT ---
Subjective Progress Note for:: 10/27/17 Subjective:: I seen patient resting in bed comfortably. He claims his back pain is not as bad as before. Fluid aspirated from L3-L4 space is negative for Gram stain and culture. I have been treating him empirically with cefepime and vancomycin. Reason For Visit: PNEUMONIA,L3 COMPRESSION FRACTURE Physical Exam Vital Signs: Temp Pulse Resp BP Pulse Ox 97.7 F 78 18 115/56 L 98 10/27/17 07:59 10/27/17 07:59 10/27/17 07:59 10/27/17 07:59 10/27/17 07:59 Intake & Output 10/26/17 10/27/17 10/28/17 06:59 06:59 06:59 Intake Total 639 946 Output Total 550 600 Balance 89 346 General appearance: PRESENT: no acute distress Head exam: PRESENT: atraumatic, normocephalic Eye exam: PRESENT: conjunctiva pink Neck exam: PRESENT: carotid bruit Respiratory exam: PRESENT: clear to auscultation miguel. ABSENT: rales, rhonchi, wheezes Cardiovascular exam: PRESENT: RRR. ABSENT: diastolic murmur, rubs, systolic murmur GI/Abdominal exam: PRESENT: normal bowel sounds, soft. ABSENT: distended, guarding, mass, organolmegaly, rebound, tenderness Neurological exam: PRESENT: alert, awake, oriented to time, oriented to situation Psychiatric exam: PRESENT: normal mood Results Laboratory Results: 10/22/17 04:48 10/27/17 04:55 10/26/17 10/27/17 19:28 04:55 Sodium 139.3 Potassium 4.2 Chloride 101 Carbon Dioxide 27 Anion Gap 11 BUN 27 H Creatinine 0.78 Est GFR ( Amer) > 60 Est GFR (Non-Af Amer) > 60 Glucose 94 Calcium 8.4 Stool Occult Blood NEGATIVE Impressions: Chest X-Ray 10/17/17 07:05 IMPRESSION: Patchy increased density in the right mid lung field most consistent with a patchy pneumonic infiltrate. There is an associated small right pleural effusion. Other findings as noted above. Lumbar Spine MRI 10/17/17 07:05 IMPRESSION: L3 50% compression deformity with anterior loss of height Abnormal disc space fluid at L3-4, with adjacent vertebral body marrow edema. Although this could be sequela of fractures with pseudoarthrosis, superimposed discitis/osteomyelitis could not be excluded. Findings discussed with the emergency room attending physician Hip/Pelvis X-Ray 10/18/17 00:00 IMPRESSION: DEGENERATIVE CHANGES. NO RADIOGRAPHIC EVIDENCE OF ACUTE INJURY. Needle Aspiration CT 10/25/17 00:00 IMPRESSION: CT GUIDED L3-4 DISC SPACE ASPIRATION PERFORMED ABOVE. MICROBIOLOGY AND CYTOLOGY PENDING. NO IMMEDIATE COMPLICATIONS. Assessment & Plan - Diagnosis (1) CAP (community acquired pneumonia) Qualifiers: Laterality: right Lung location: unspecified part of lung Qualified Code( s): J18.9 - Pneumonia, unspecified organism Is this a current diagnosis for this admission?: Yes Plan: Treated (2) Elevated C-reactive protein (CRP) Is this a current diagnosis for this admission?: Yes (3) Lumbar compression fracture Qualifiers: Encounter type: subsequent encounter Lumbar vertebra fracture level: L3 Fracture type: closed Fracture healing: with routine healing Qualified Code( s): S32.030D - Wedge compression fracture of third lumbar vertebra, subsequent encounter for fracture with routine healing Is this a current diagnosis for this admission?: Yes Plan: Discussed the case with interventional radiologist Dr. Swann for possible kyphoplasty. (4) Back pain Qualifiers: Back pain location: low back pain Chronicity: chronic Back pain laterality: bilateral Sciatica presence: with sciatica Sciatica laterality: sciatica laterality unspecified Qualified Code(s): M54.40 - Lumbago with sciatica, unspecified side; G89.29 - Other chronic pain; G89.29 - Other chronic pain Is this a current diagnosis for this admission?: Yes Plan: Pain controlled - Time Time Spent with patient: 25-34 minutes
[2017-10-27] MEDS: ACETAMINOPHEN 325 MG TABLET PO PRN (16:38)
[2017-10-28] MEDS: LANSOPRAZOLE 15 MG TAB.RAP.DR PO SCH (06:05)
[2017-10-28] MEDS: CEFEPIME 2 GM/D5W RTU 2 GM/50 ML RTUPB IV SCH ×2 (06:06→17:26)
[2017-10-28] MEDS: VANCOMYCIN HCL 500 MG in NORMAL SALINE 100 ML IV SCH (09:30)
[2017-10-28] MEDS: GUAIFENESIN 600 MG TABLET.SA PO SCH ×2 (09:31→21:42)
[2017-10-28] MEDS: MULTIVITAMIN TABLET PO SCH (09:31)
[2017-10-28] MEDS: ENOXAPARIN SODIUM INJ 40 MG/0.4 ML DISP.SYRIN SUBCUT SCH (09:31)
[2017-10-28] MEDS: ASPIRIN 81 MG TABLET, ENT COATED PO SCH (09:32)
[2017-10-28] MEDS: FOLIC ACID 1 MG TABLET PO SCH (09:32)
[2017-10-28] MEDS: CYANOCOBALAMIN (VITAMIN B-12) 1,000 MCG TABLET PO SCH (09:32)
[2017-10-28] MEDS: NADOLOL 40 MG TABLET PO SCH (09:32)
[2017-10-28 10:12] LABS: VANCOMYCIN,TROUGH 8.5 ug/mL (5.0-20.0)
--- NOTE | 2017-10-28 14:50 | PDOC PROGRESS REPORT ---
Subjective Subjective:: No significant change overnight. I tried to reach Dr. Rios interventional radiologist for possible kyphoplasty of the compression fracture, she is not available today. Reason For Visit: PNEUMONIA,L3 COMPRESSION FRACTURE Physical Exam Vital Signs: Temp Pulse Resp BP Pulse Ox 97.8 F 93 20 134/73 H 99 10/28/17 08:07 10/28/17 08:07 10/28/17 08:07 10/28/17 08:07 10/28/17 08:07 Intake & Output 10/27/17 10/28/17 10/29/17 06:59 06:59 06:59 Intake Total 946 1013 Output Total 600 650 Balance 346 363 General appearance: PRESENT: no acute distress, well-developed Head exam: PRESENT: atraumatic, normocephalic Eye exam: PRESENT: conjunctiva pink, EOMI, PERRLA. ABSENT: scleral icterus Ear exam: PRESENT: normal external ear exam Mouth exam: PRESENT: moist, tongue midline Neck exam: ABSENT: carotid bruit, JVD, lymphadenopathy, thyromegaly Respiratory exam: PRESENT: clear to auscultation miguel. ABSENT: rales, rhonchi, wheezes Cardiovascular exam: PRESENT: RRR. ABSENT: diastolic murmur, rubs, systolic murmur Pulses: PRESENT: normal dorsalis pedis pul Vascular exam: PRESENT: normal capillary refill GI/Abdominal exam: PRESENT: normal bowel sounds, soft. ABSENT: distended, guarding, mass, organolmegaly, rebound, tenderness Rectal exam: PRESENT: deferred Extremities exam: PRESENT: full ROM. ABSENT: calf tenderness, clubbing, pedal edema Neurological exam: PRESENT: alert, awake, oriented to person, oriented to place , oriented to time, oriented to situation, CN II-XII grossly intact. ABSENT: motor sensory deficit Psychiatric exam: PRESENT: appropriate affect, normal mood. ABSENT: homicidal ideation, suicidal ideation Skin exam: PRESENT: dry, intact, warm. ABSENT: cyanosis, rash Results Laboratory Results: 10/22/17 04:48 10/27/17 04:55 10/25/17 12:15 Back - Lumbar Gram Stain - Final 10/25/17 12:15 Back - Lumbar Body Fluid Culture - Final NO AEROBIC OR ANAEROBIC ORGANISMS RECOVERED Impressions: Chest X-Ray 10/17/17 07:05 IMPRESSION: Patchy increased density in the right mid lung field most consistent with a patchy pneumonic infiltrate. There is an associated small right pleural effusion. Other findings as noted above. Lumbar Spine MRI 10/17/17 07:05 IMPRESSION: L3 50% compression deformity with anterior loss of height Abnormal disc space fluid at L3-4, with adjacent vertebral body marrow edema. Although this could be sequela of fractures with pseudoarthrosis, superimposed discitis/osteomyelitis could not be excluded. Findings discussed with the emergency room attending physician Hip/Pelvis X-Ray 10/18/17 00:00 IMPRESSION: DEGENERATIVE CHANGES. NO RADIOGRAPHIC EVIDENCE OF ACUTE INJURY. Needle Aspiration CT 10/25/17 00:00 IMPRESSION: CT GUIDED L3-4 DISC SPACE ASPIRATION PERFORMED ABOVE. MICROBIOLOGY AND CYTOLOGY PENDING. NO IMMEDIATE COMPLICATIONS. Assessment & Plan - Diagnosis (1) CAP (community acquired pneumonia) Qualifiers: Laterality: right Lung location: unspecified part of lung Qualified Code( s): J18.9 - Pneumonia, unspecified organism Is this a current diagnosis for this admission?: Yes Plan: Treated (2) Elevated C-reactive protein (CRP) Is this a current diagnosis for this admission?: Yes Plan: Patient scheduled for biopsy (3) Lumbar compression fracture Qualifiers: Encounter type: subsequent encounter Lumbar vertebra fracture level: L3 Fracture type: closed Fracture healing: with routine healing Qualified Code( s): S32.030D - Wedge compression fracture of third lumbar vertebra, subsequent encounter for fracture with routine healing Is this a current diagnosis for this admission?: Yes Plan: I will discuss with Dr. Rios for possible kyphoplasty tomorrow. (4) Back pain Qualifiers: Back pain location: low back pain Chronicity: chronic Back pain laterality: bilateral Sciatica presence: with sciatica Sciatica laterality: sciatica laterality unspecified Qualified Code(s): M54.40 - Lumbago with sciatica, unspecified side; G89.29 - Other chronic pain; G89.29 - Other chronic pain Is this a current diagnosis for this admission?: Yes
[2017-10-28] MEDS: VANCOMYCIN HCL 1,000 MG in DEXTROSE 5%-WATER 250 ML IV SCH (21:42)
[2017-10-29] MEDS: CEFEPIME 2 GM/D5W RTU 2 GM/50 ML RTUPB IV SCH (06:08)
[2017-10-29] MEDS: LANSOPRAZOLE 15 MG TAB.RAP.DR PO SCH (06:08)
[2017-10-29] MEDS: GUAIFENESIN 600 MG TABLET.SA PO SCH ×2 (11:13→22:42)
[2017-10-29] MEDS: CYANOCOBALAMIN (VITAMIN B-12) 1,000 MCG TABLET PO SCH (11:13)
[2017-10-29] MEDS: MULTIVITAMIN TABLET PO SCH (11:13)
[2017-10-29] MEDS: ASPIRIN 81 MG TABLET, ENT COATED PO SCH (11:15)
[2017-10-29] MEDS: FOLIC ACID 1 MG TABLET PO SCH (11:15)
[2017-10-29] MEDS: VANCOMYCIN HCL 1,000 MG in DEXTROSE 5%-WATER 250 ML IV SCH (11:22)
[2017-10-29] MEDS: ENOXAPARIN SODIUM INJ 40 MG/0.4 ML DISP.SYRIN SUBCUT SCH (11:22)
--- NOTE | 2017-10-29 11:38 | PDOC PROGRESS REPORT ---
Subjective Subjective:: As he is 87 years old male patient with past medical history of significant for chronic back pain and rheumatoid arthritis presented with worsening back and lower extremity pain. He is MRI of the spine shows L3 compression fracture and fluid collection in the L3-L4 disc space. The possibility of discitis considered and CT-guided aspiration of the collected fluid was done and about 10 mL of cloudy yellowish fluid aspirated. Gram stain and culture are negative. Patient empirically treated with vancomycin and cefepime. This morning I discussed with his pain management director security management Dr. Sunday Mederos who recommended conservative management and the patient is not a candidate for kyphoplasty. I will consulted logistics planner for acute rehab placement. Reason For Visit: PNEUMONIA,L3 COMPRESSION FRACTURE Physical Exam Vital Signs: Temp Pulse Resp BP Pulse Ox 97.9 F 76 17 111/58 L 100 10/29/17 07:13 10/29/17 07:13 10/29/17 07:13 10/29/17 07:13 10/29/17 07:13 Intake & Output 10/28/17 10/29/17 10/30/17 06:59 06:59 06:59 Intake Total 1013 1463 Output Total 650 575 Balance 363 888 General appearance: PRESENT: no acute distress, well-developed, well-nourished Head exam: PRESENT: atraumatic, normocephalic Eye exam: PRESENT: conjunctiva pink, EOMI, PERRLA. ABSENT: scleral icterus Ear exam: PRESENT: normal external ear exam Mouth exam: PRESENT: moist, tongue midline Neck exam: ABSENT: carotid bruit, JVD, lymphadenopathy, thyromegaly Respiratory exam: PRESENT: clear to auscultation miguel. ABSENT: rales, rhonchi, wheezes Cardiovascular exam: PRESENT: RRR. ABSENT: diastolic murmur, rubs, systolic murmur Pulses: PRESENT: normal dorsalis pedis pul Vascular exam: PRESENT: normal capillary refill GI/Abdominal exam: PRESENT: normal bowel sounds, soft. ABSENT: distended, guarding, mass, organolmegaly, rebound, tenderness Rectal exam: PRESENT: deferred Extremities exam: PRESENT: full ROM. ABSENT: calf tenderness, clubbing, pedal edema Neurological exam: PRESENT: alert, awake, oriented to person, oriented to place , oriented to time, oriented to situation. ABSENT: motor sensory deficit Psychiatric exam: PRESENT: appropriate affect, normal mood. ABSENT: homicidal ideation, suicidal ideation Skin exam: PRESENT: dry, intact, warm. ABSENT: cyanosis, rash Results Laboratory Results: 10/22/17 04:48 10/27/17 04:55 10/25/17 12:15 Back - Lumbar Gram Stain - Final 10/25/17 12:15 Back - Lumbar Body Fluid Culture - Final NO AEROBIC OR ANAEROBIC ORGANISMS RECOVERED Impressions: Chest X-Ray 10/17/17 07:05 IMPRESSION: Patchy increased density in the right mid lung field most consistent with a patchy pneumonic infiltrate. There is an associated small right pleural effusion. Other findings as noted above. Lumbar Spine MRI 10/17/17 07:05 IMPRESSION: L3 50% compression deformity with anterior loss of height Abnormal disc space fluid at L3-4, with adjacent vertebral body marrow edema. Although this could be sequela of fractures with pseudoarthrosis, superimposed discitis/osteomyelitis could not be excluded. Findings discussed with the emergency room attending physician Hip/Pelvis X-Ray 10/18/17 00:00 IMPRESSION: DEGENERATIVE CHANGES. NO RADIOGRAPHIC EVIDENCE OF ACUTE INJURY. Needle Aspiration CT 10/25/17 00:00 IMPRESSION: CT GUIDED L3-4 DISC SPACE ASPIRATION PERFORMED ABOVE. MICROBIOLOGY AND CYTOLOGY PENDING. NO IMMEDIATE COMPLICATIONS. Assessment & Plan - Diagnosis (1) CAP (community acquired pneumonia) Qualifiers: Laterality: right Lung location: unspecified part of lung Qualified Code( s): J18.9 - Pneumonia, unspecified organism Is this a current diagnosis for this admission?: Yes Plan: Treated (2) Elevated C-reactive protein (CRP) Is this a current diagnosis for this admission?: Yes Plan: Nonspecific nightly due to his rheumatoid arthritis. (3) Lumbar compression fracture Qualifiers: Encounter type: subsequent encounter Lumbar vertebra fracture level: L3 Fracture type: closed Fracture healing: with routine healing Qualified Code( s): S32.030D - Wedge compression fracture of third lumbar vertebra, subsequent encounter for fracture with routine healing Is this a current diagnosis for this admission?: Yes Plan: Conservative management recommended by Dr. Sunday Mederos. (4) Back pain Qualifiers: Back pain location: low back pain Chronicity: chronic Back pain laterality: bilateral Sciatica presence: with sciatica Sciatica laterality: sciatica laterality unspecified Qualified Code(s): M54.40 - Lumbago with sciatica, unspecified side; G89.29 - Other chronic pain; G89.29 - Other chronic pain Is this a current diagnosis for this admission?: Yes Plan: Controlled (5) Rheumatoid arthritis Is this a current diagnosis for this admission?: Yes Plan: In remission
[2017-10-29] MEDS: NADOLOL 40 MG TABLET PO SCH (14:42)
[2017-10-30] MEDS: LANSOPRAZOLE 15 MG TAB.RAP.DR PO SCH (05:31)
[2017-10-30] MEDS ORDERED: CALCIUM CARBONATE 250 MG/VITAMIN D3 125 UNIT TABLET PO SCH (08:00)
--- NOTE | 2017-10-30 08:23 | PDOC TRANSFER SUMMARY ---
General - Admit/Disc Date/PCP Admission Date/Primary Care Provider: 10/17/17 11:23 SHARMIN BETTS MD Discharge Date: 10/30/17 - Discharge Diagnosis (1) CAP (community acquired pneumonia) Is this a current diagnosis for this admission?: Yes (2) Elevated C-reactive protein (CRP) Is this a current diagnosis for this admission?: Yes (3) Lumbar compression fracture Is this a current diagnosis for this admission?: Yes (4) Back pain Is this a current diagnosis for this admission?: Yes (5) Rheumatoid arthritis Is this a current diagnosis for this admission?: Yes - Additional Information Resuscitation Status: Full Code Discharge Diet: As Tolerated Discharge Activity: Other - use walker Home Medications: Calcium/Magnesium/Vit D3 [Calcium 500 mg Tablet] 1 each PO DAILY 04/08/12 Multivitamin [Tab-A-Ariadne (Multiple Vitamin) Tablet] 1 tab PO DAILY 04/08/12 Adalimumab [Humira Pen] 40 mg SQ Q14D 10/17/17 Aspirin [Aspirin EC] 81 mg PO DAILY 10/17/17 Cyanocobalamin (Vitamin B-12) [Vitamin B-12] 1,000 mcg PO DAILY 10/17/17 Folic Acid [Folvite 1 mg Tablet] 1 mg PO DAILY 10/17/17 Ipratropium 0.03% 2 sprays NASL TIDP PRN 10/17/17 Methotrexate Sodium [Methotrexate] 10 mg PO Q7D 10/17/17 Mirabegron [Myrbetriq] 50 mg PO DAILY 10/17/17 Nadolol [Corgard] 20 mg PO DAILY 10/17/17 Pantoprazole Sodium [Protonix] 40 mg PO ACBRKFST 10/17/17 History of Present Illness Admission Date/PCP: 10/17/17 11:23 SHARMIN BETTS MD History of Present Illness: MARCELA MATTHEWS is a 87 year old male with history of chronic back pain and rheumatoid arthritis who presents today to [facility] with worsening lower extremity pain. States that he has chronic back pain for over 40 years now. He has had multiple imaging studies over the years and has been evaluated by orthopedic surgery in the past (few years ago). Pain has been controlled medically. However over the past month, he has experience worsening back pain. He notes that around 1 month ago, he was doing some yard work and that causes worsening in his pain. Additonally both he and his family noted that he has had multiple falls. He was using a cane however not required a walker for ambulation. Patient is not best historian but he thinks pain is bilateral and radiates down BOTH front and back of this legs. He has not urinary or fecal incontinence. He denies any fevers or chills. He had lumbar spine and pelvis xrays on 09/20 after a fall, which were negative for acute fracture. His also states that he had knee xrays done recently. The results of these imaging studies are not available. Patient also notes that he has a productive cough over the last week. No sick contacts. He has had 3 bouts of PNA over the last year. Also noted to have lost 100 lbs over the past 2 years. He has had very poor PO intake during this time period. Will be admitted to hospitalist service for further evaluation. Hospital Course Hospital Course: Patient had been treated for pneumonia. For his back pain MRI of the lumbar spine was done and it revealed L3 compression fracture and fluid collection noticed between the L3 and L4 disc space. The possibility of discitis considered and aspiration of the disc space produce 10 mL of cloudy yellow fluid. The fluid specimen was sent for lab but is negative for Gram stain and culture. Patient had been treated empirically with cefepime and vancomycin for 5 days. Yesterday I called his pain management nurse practitioner Dr. Sunday Mederos who recommended against any surgical intervention and he said patient is not a candidate for Kyphoplasty. He said patient would benefit from conservative management. Since patient is deconditioned and debilitated he qualifies for acute rehab placement. Today on the day of discharge on physical examination I found the patient resting in bed and enjoying his breakfast. He is not in pain or any form of acute respiratory distress. Physical Exam Vital Signs: Temp Pulse Resp BP Pulse Ox 98.2 F 81 22 H 118/60 99 10/29/17 23:25 10/29/17 23:25 10/29/17 23:25 10/29/17 23:25 10/29/17 23:25 Intake & Output 10/29/17 10/30/17 10/31/17 06:59 06:59 06:59 Intake Total 1463 1231 Output Total 575 525 Balance 888 706 General appearance: PRESENT: no acute distress, well-developed, well-nourished Head exam: PRESENT: atraumatic, normocephalic Eye exam: PRESENT: conjunctiva pink, EOMI, PERRLA. ABSENT: scleral icterus Ear exam: PRESENT: normal external ear exam Mouth exam: PRESENT: moist, tongue midline Neck exam: ABSENT: carotid bruit, JVD, lymphadenopathy, thyromegaly Respiratory exam: PRESENT: clear to auscultation miguel. ABSENT: rales, rhonchi, wheezes Cardiovascular exam: PRESENT: RRR. ABSENT: diastolic murmur, rubs, systolic murmur Pulses: PRESENT: normal dorsalis pedis pul Vascular exam: PRESENT: normal capillary refill GI/Abdominal exam: PRESENT: normal bowel sounds, soft. ABSENT: distended, guarding, mass, organolmegaly, rebound, tenderness Rectal exam: PRESENT: deferred Extremities exam: PRESENT: full ROM. ABSENT: calf tenderness, clubbing, pedal edema Neurological exam: PRESENT: alert, awake, oriented to person, oriented to place , oriented to time, oriented to situation. ABSENT: motor sensory deficit Psychiatric exam: PRESENT: appropriate affect, normal mood. ABSENT: homicidal ideation, suicidal ideation Skin exam: PRESENT: dry, intact, warm. ABSENT: cyanosis, rash Results Laboratory Results: 10/22/17 04:48 10/27/17 04:55 Impressions: Chest X-Ray 10/17/17 07:05 IMPRESSION: Patchy increased density in the right mid lung field most consistent with a patchy pneumonic infiltrate. There is an associated small right pleural effusion. Other findings as noted above. Lumbar Spine MRI 10/17/17 07:05 IMPRESSION: L3 50% compression deformity with anterior loss of height Abnormal disc space fluid at L3-4, with adjacent vertebral body marrow edema. Although this could be sequela of fractures with pseudoarthrosis, superimposed discitis/osteomyelitis could not be excluded. Findings discussed with the emergency room attending physician Hip/Pelvis X-Ray 10/18/17 00:00 IMPRESSION: DEGENERATIVE CHANGES. NO RADIOGRAPHIC EVIDENCE OF ACUTE INJURY. Needle Aspiration CT 10/25/17 00:00 IMPRESSION: CT GUIDED L3-4 DISC SPACE ASPIRATION PERFORMED ABOVE. MICROBIOLOGY AND CYTOLOGY PENDING. NO IMMEDIATE COMPLICATIONS. Qualifiers - * PATIENT BEING DISCHARGED WITH ANY OF THE FOLLOWING DIAGNOSIS: No
[2017-10-30] MEDS: GUAIFENESIN 600 MG TABLET.SA PO SCH (09:03)
[2017-10-30] MEDS: MULTIVITAMIN TABLET PO SCH (09:03)
[2017-10-30] MEDS: ENOXAPARIN SODIUM INJ 40 MG/0.4 ML DISP.SYRIN SUBCUT SCH (09:03)
[2017-10-30] MEDS: CYANOCOBALAMIN (VITAMIN B-12) 1,000 MCG TABLET PO SCH (09:03)
[2017-10-30] MEDS: ASPIRIN 81 MG TABLET, ENT COATED PO SCH (09:03)
[2017-10-30] MEDS: FOLIC ACID 1 MG TABLET PO SCH (09:03)
[2017-10-30] MEDS: NADOLOL 40 MG TABLET PO SCH (09:47)
[2017-10-30 10:32] LABS: VANCOMYCIN,TROUGH 12.6 ug/mL (5.0-20.0)
[2017-10-30 16:17] VITALS: BP 111/61
--- NOTE | 2017-11-01 18:11 | PDOC PROGRESS REPORT ---
Subjective Progress Note for:: 10/23/17 Subjective:: Patient seen and evaluated with nurse. Asleep but arousable and oriented 3, denies pain at rest but severe pain with minimal movement in bed, shortness of breath or cough. Tolerating p.o. but poor appetite Reason For Visit: PNEUMONIA,L3 COMPRESSION FRACTURE Physical Exam Vital Signs: Temp Pulse Resp BP Pulse Ox 97.7 F 75 12 111/61 97 10/30/17 16:00 10/30/17 16:00 10/30/17 16:00 10/30/17 16:00 10/30/17 16:00 General appearance: PRESENT: no acute distress, well-developed, well-nourished Head exam: PRESENT: atraumatic, normocephalic Eye exam: PRESENT: conjunctiva pink, EOMI, PERRLA. ABSENT: scleral icterus Ear exam: PRESENT: normal external ear exam Mouth exam: PRESENT: moist, tongue midline Neck exam: ABSENT: carotid bruit, JVD, lymphadenopathy, thyromegaly Respiratory exam: PRESENT: clear to auscultation miguel. ABSENT: rales, rhonchi, wheezes Cardiovascular exam: PRESENT: RRR. ABSENT: diastolic murmur, rubs, systolic murmur Pulses: PRESENT: normal dorsalis pedis pul Vascular exam: PRESENT: normal capillary refill GI/Abdominal exam: PRESENT: normal bowel sounds, soft. ABSENT: distended, guarding, mass, organolmegaly, rebound, tenderness Rectal exam: PRESENT: deferred Extremities exam: PRESENT: full ROM. ABSENT: calf tenderness, clubbing, pedal edema Neurological exam: PRESENT: alert, awake, oriented to person, oriented to place , oriented to time, oriented to situation, CN II-XII grossly intact. ABSENT: motor sensory deficit Psychiatric exam: PRESENT: appropriate affect, normal mood. ABSENT: homicidal ideation, suicidal ideation Skin exam: PRESENT: dry, intact, warm. ABSENT: cyanosis, rash Results Laboratory Results: 10/22/17 04:48 10/30/17 09:35 Impressions: Chest X-Ray 10/17/17 07:05 IMPRESSION: Patchy increased density in the right mid lung field most consistent with a patchy pneumonic infiltrate. There is an associated small right pleural effusion. Other findings as noted above. Lumbar Spine MRI 10/17/17 07:05 IMPRESSION: L3 50% compression deformity with anterior loss of height Abnormal disc space fluid at L3-4, with adjacent vertebral body marrow edema. Although this could be sequela of fractures with pseudoarthrosis, superimposed discitis/osteomyelitis could not be excluded. Findings discussed with the emergency room attending physician Hip/Pelvis X-Ray 10/18/17 00:00 IMPRESSION: DEGENERATIVE CHANGES. NO RADIOGRAPHIC EVIDENCE OF ACUTE INJURY. Needle Aspiration CT 10/25/17 00:00 IMPRESSION: CT GUIDED L3-4 DISC SPACE ASPIRATION PERFORMED ABOVE. MICROBIOLOGY AND CYTOLOGY PENDING. NO IMMEDIATE COMPLICATIONS. Assessment & Plan - Diagnosis (1) Back pain Qualifiers: Back pain location: low back pain Chronicity: chronic Back pain laterality: bilateral Sciatica presence: with sciatica Sciatica laterality: sciatica laterality unspecified Qualified Code(s): M54.40 - Lumbago with sciatica, unspecified side; G89.29 - Other chronic pain; G89.29 - Other chronic pain Is this a current diagnosis for this admission?: Yes Plan: Discitis on imaging. Bed rest and symptomatic management. Unclear if active infection present biopsy pending. Following 72 hours of antibiotic cessation. (2) CAP (community acquired pneumonia) Qualifiers: Laterality: right Lung location: unspecified part of lung Qualified Code( s): J18.9 - Pneumonia, unspecified organism Is this a current diagnosis for this admission?: Yes Plan: Greatly improved, antibiotics on hold to new incentive spirometry, albuterol and Atrovent. - Time Time Spent with patient: Less than 15 minutes - Inpatient Certification Medical Necessity: Need Close Monitoring Due to Risk of Patient Decompensation
--- NOTE | 2017-11-22 17:56 | Progress Note ---
Provider Note Provider Note: This is an addendum to discharge summary I dictated for Mr. Tavera, those for compression fracture is trauma associated with osteoporosis.
== END 2017-10-30 17:15 | DRG 542 ==
LOC: ER 06:33 → EH 11:23 → 4S 17:35
PROVIDERS: ADMIT Internal Medicine; ATTEND Internal Medicine
PROC: 009Y3ZX Drainage of Lumbar Spinal Cord, Percutaneous Approach, Diagnostic (ICD-10-PCS; principal; 2017-10-25)
DX: M80.88XA Other osteoporosis with current pathological fracture, vertebra(e), initial encounter for fracture (principal); J18.9 Pneumonia, unspecified organism; E44.0 Moderate protein-calorie malnutrition; Z68.1 Body mass index [BMI] 19.9 or less, adult; E88.09 Other disorders of plasma-protein metabolism, not elsewhere classified; M06.9 Rheumatoid arthritis, unspecified; G89.29 Other chronic pain; K21.9 Gastro-esophageal reflux disease without esophagitis; M19.90 Unspecified osteoarthritis, unspecified site; I10 Essential (primary) hypertension; E83.42 Hypomagnesemia; D64.9 Anemia, unspecified; M54.40 Lumbago with sciatica, unspecified side; R79.82 Elevated C-reactive protein (CRP); Z90.49 Acquired absence of other specified parts of digestive tract; Z91.81 History of falling; Z85.828 Personal history of other malignant neoplasm of skin; Z87.01 Personal history of pneumonia (recurrent); Z79.899 Other long term (current) drug therapy
CPT/HCPCS: 10022; 36415; 71046; 72148; 80048; 80053; 80202; 81001; 82272; 82550; 82553; 82565; 82607; 82728; 82746; 83540; 83550; 83735; 83880; 84484; 85025; 85027; 85045; 85610; 85652; 86140; 87040; 87070; 87075; 87205; 89060; 93005; 93010; 94640; 96361; 96365; 96375; 96376; 99285; G8978-GP; G8979-GP; J0692; J0696; J1650; J2250; J3010; J3370; J3475; J3490; J7040; J7060; J7620

== ENCOUNTER 2018-01-10 12:50 | Emergency (ER) | payer MEDICARE, OTHER ==
[2018-01-10 13:08] VITALS: BP 144/50
[2018-01-10] MEDS ORDERED: ACETAMINOPHEN 325 MG TABLET PO ONE (14:25)
--- NOTE | 2018-01-10 14:26 | ER Document Report ---
ED General - General Chief Complaint: Hip Pain Stated Complaint: LEFT HIP PAIN Time Seen by Provider: 01/10/18 14:09 Notes: Patient is an 87-year-old male that presents to the emergency department for chief complaint of right hip pain, and generalized weakness. Patient states that he was not able to get out of bed today because his pain in his right hip was severe, he reports that he was hospitalized for 11 days, and then recently discharged from a custodial facility after having therapy, so he is rather deconditioned, and he was not able to get up out of bed today so he came to the emergency department. He lives at home with his elderly . He denies any numbness, tingling or weakness in his lower extremities, denies having any back pain or radiation from his back. He currently rates the pain as a 7 out of 10, and worse with any range of motion of the right hip, particularly with abduction. He was taking [id number] Aleve for the pain earlier in the week. Past Medical History: Osteoarthritis, hypertension, GERD Past Surgical History: Appendectomy Social History: Denies tobacco, alcohol or drug use, lives at home with Family History: Reviewed and noncontributory for presenting illness Allergies: Reviewed, see documented allergy list. REVIEW OF SYSTEMS: Unless otherwise stated in this report the patient's positive and negative responses for review of systems for constitutional, eyes, ENT, cardiovascular, respiratory, gastrointestinal, neurological, genitourinary, musculoskeletal, and integumentary systems and related systems to the presenting problem are either as stated in the HPI or were not pertinent or were negative for the symptoms and/or complaints related to the presenting medical problem. PHYSICAL EXAMINATION: Vital signs reviewed, nursing noted reviewed. GENERAL: Well-appearing, well-nourished and in no acute distress. HEAD: Atraumatic, normocephalic. EYES: Eyes appear normal, extraocular movements intact, sclera anicteric, conjunctiva are normal. ENT: nares patent, oropharynx clear without exudates. Moist mucous membranes. NECK: Normal range of motion, supple without lymphadenopathy LUNGS: Breath sounds clear to auscultation bilaterally and equal. No wheezes rales or rhonchi. HEART: Regular rate and rhythm without murmurs ABDOMEN: Soft, nontender, normoactive bowel sounds. No rebound, guarding, or rigidity. No masses appreciated. EXTREMITIES: Tenderness to palpation over the right greater trochanter, and some pain with range of motion of the hip particularly with abduction and abduction, none with internal and external rotation. There is no pain with range of motion of the knee or ankle of the right lower extremity, the rest the patient's extremity exam is grossly unremarkable. NEUROLOGICAL: No focal neurological deficits. Moves all extremities spontaneously Motor and sensory grossly intact on exam. PSYCH: Normal mood, normal affect. SKIN: Warm, Dry, normal turgor, no rashes or lesions noted on exposed skin TRAVEL OUTSIDE OF THE [place] IN LAST 30 DAYS: No - Related Data Allergies/Adverse Reactions: No Known Allergies Allergy (Verified 10/17/17 15:47) Past Medical History - Social History Smoking Status: Never Smoker Chew tobacco use (# tins/day): No Frequency of alcohol use: None Drug Abuse: None Family History: Reviewed & Not Pertinent Patient has suicidal ideation: No Patient has homicidal ideation: No - Past Medical History Cardiac Medical History: Reports: Hx Hypertension Denies: Hx Heart Attack Pulmonary Medical History: Denies: Hx Asthma Neurological Medical History: Denies: Hx Cerebrovascular Accident, Hx Seizures Renal/ Medical History: Denies: Hx Peritoneal Dialysis Malignancy Medical History: Reports Hx Skin Cancer - basal cell carcinoma on back GI Medical History: Reports: Hx Gastroesophageal Reflux Disease. Denies: Hx Hepatitis, Hx Hiatal Hernia, Hx Ulcer Musculoskeletal Medical History: Reports Hx Arthritis Psychiatric Medical History: Denies: Hx Depression Infectious Medical History: Denies: Hx Hepatitis Past Surgical History: Reports: Hx Abdominal Surgery - inguinal hernia repair, Hx Appendectomy, Hx Herniorrhaphy, Hx Orthopedic Surgery - finger. Denies: Hx Open Heart Surgery, Hx Pacemaker - Immunizations Immunizations up to date: Yes Hx Diphtheria, Pertussis, Tetanus Vaccination: Yes Physical Exam - Vital signs Vitals: Temp Pulse Resp BP Pulse Ox 98.3 F 77 18 144/50 H 98 01/10/18 13:07 01/10/18 13:07 01/10/18 13:07 01/10/18 13:07 01/10/18 13:07 Course - Re-evaluation Re-evalutation: Patient seen and examined vital signs reviewed. Laboratory data and imaging were ordered as appropriate for the patient's presenting symptoms and complaint, with consideration of any critical or life threatening conditions that may be associated with their obtained history and exam as noted above. Patient was treated with Tylenol Results were reviewed when available and demonstrated negative x-rays of the pelvis, however the patient was brought to ambulate, with nursing staff, was a two-person heavy assist, therefore I did obtain CT imaging of the patient's right lower extremity, to look for possible occult hip fracture, which was negative. The patient was re-evaluated and was still having some pain, but willing to be discharged home, he was advised and offered to be observed in the hospital overnight, possible placement to custodial, we did try going the route through case management to have the patient discharged to custodial, but this is not able to be obtained at this time. The patient and the patient's wanted to try to go home and see how he does and follow-up next week with her already scheduled appoint with her primary care physician. Evaluation was most consistent with right hip bursitis, and right hip pain Results were discussed with the patient at this point, after careful consideration I feel that that patient can be discharged from the emergency department, the patient was educated treatments and reasons to return to the emergency department based on their presumed diagnosis as noted above, they were advised to followup with a primary care physician in 2-3 days. Patient was agreeable to plan of care. *Note is created using voice recognition software and may contain spelling, syntax or grammatical errors. Hip/Pelvis X-Ray 01/10/18 14:25 IMPRESSION: NEGATIVE STUDY OF THE RIGHT HIP. NO RADIOGRAPHIC EVIDENCE OF ACUTE INJURY. Lower Extremity CT 01/10/18 15:41 IMPRESSION: NO ACUTE OR SIGNIFICANT FINDINGS IN THE HIP OR PELVIS. - Vital Signs Vital signs: Temp Pulse Resp BP Pulse Ox 98.3 F 77 18 144/50 H 98 01/10/18 13:07 01/10/18 13:07 01/10/18 13:07 01/10/18 13:07 01/10/18 13:07 Discharge - Discharge Clinical Impression: Right hip pain Condition: Stable Disposition: HOME, SELF-CARE Instructions: Bursitis ([facility]) Additional Instructions: Please return to the emergency department if you have any worsening, or concern of your symptoms. Please return to the emergency department if you develop chest pain, difficulty breathing, severe abdominal pain, or ongoing vomiting. Please follow-up with your primary care physician in 2-3 days and any other recommended physicians. If prescribed, take all medications as directed. If you have any questions or concerns do not hesitate to return the emergency department for evaluation. Please follow-up with your primary care physician, if you do not feel comfortable at home after getting home, do not hesitate to come back to the emergency department to be reevaluated. take 2 over the counter Aleve twice daily for pain, with food, and you can take 2 extra strength tylenol every 8 hours for pain as well. Referrals: SHARMIN BETTS MD [Primary Care Provider] - Follow up in 3-5 days
--- NOTE | 2018-01-10 14:58 | RADIOLOGY REPORT (SQ) ---
EXAM DESCRIPTION: HIP RIGHT AP/LATERAL COMPLETED DATE/TIME: 01/10/2018 2:40 pm REASON FOR STUDY: fall right hip pain COMPARISON: None. NUMBER OF VIEWS: Two views. TECHNIQUE: AP pelvis and additional frog-leg view of the right hip. LIMITATIONS: None. FINDINGS: MINERALIZATION: Normal. RIGHT HIP: No fracture or dislocation. No worrisome bone lesions. LEFT HIP: No fracture or dislocation. No worrisome bone lesions. PUBIS AND ISCHIUM: No fracture. PELVIS: No fracture. SACRUM: No fracture or dislocation. No worrisome bone lesions. LOWER LUMBAR SPINE: No fracture or dislocation. No worrisome bone lesions. No significant disc disea se. SOFT TISSUES: No findings. OTHER: No other significant finding. IMPRESSION: NEGATIVE STUDY OF THE RIGHT HIP. NO RADIOGRAPHIC EVIDENCE OF ACUTE INJURY. TECHNICAL DOCUMENTATION: JOB ID: [id number] [employer]- All Rights Reserved Reading location - IP/workstation name: [email or web address]
--- NOTE | 2018-01-10 17:15 | RADIOLOGY REPORT (SQ) ---
EXAM DESCRIPTION: CT RT LOWER EXTREMITY WITHOUT COMPLETED DATE/TIME: 01/10/2018 4:55 pm REASON FOR STUDY: right hip pain, difficulty bearing weight COMPARISON: Radiographs 01/10/2018 TECHNIQUE: CT scan of the right hip performed without intravenous or oral contrast. Images reviewed with soft tissue and bone windows. Reconstructed coronal and sagittal MPR images reviewed. All kellen ges stored on PACS. All CT scanners at this facility use dose modulation, iterative reconstruction, and/or weight based d osing when appropriate to reduce radiation dose to as low as reasonably achievable (ALARA). [facility]: Dose Right [facility]: CareDose [facility]: Dose Right [facility]: Teradose 4D [facility]: [employer] RADIATION DOSE: CT Rad equipment meets quality standard of care and radiation dose reduction techniq ues were employed. CTDIvol: 4.1 mGy. DLP: 114 mGy-cm. mGy. LIMITATIONS: None. FINDINGS: PELVIC BONES: No acute fracture. No worrisome bone lesions. VISUALIZED SPINE: No acute findings. SYMPTOMATIC HIP: No acute fracture or dislocation. No worrisome bone lesions. OPPOSITE HIP: Not included. PELVIC SOFT TISSUES: No significant findings. EXTRAPELVIC SOFT TISSUES: No significant findings. OTHER: No other significant finding. IMPRESSION: NO ACUTE OR SIGNIFICANT FINDINGS IN THE HIP OR PELVIS. TECHNICAL DOCUMENTATION: JOB ID: [id number] Quality ID # [id number]: Final reports with documentation of one or more dose reduction techniques (e.g., Au tomated exposure control, adjustment of the mA and/or kV according to patient size, use of iterative reconstruction technique) 2010 [employer]- All Rights Reserved Reading location - IP/workstation name: [email or web address]
== END 2018-01-10 18:16 | disposition home or self-care (01) ==
LOC: ER 12:50
DX: M25.551 Pain in right hip (principal); R53.1 Weakness; I10 Essential (primary) hypertension; K21.9 Gastro-esophageal reflux disease without esophagitis
CPT/HCPCS: 99284; 73502; 73700; A9270

== ENCOUNTER 2018-01-10 19:02 | Emergency (ER) | payer MEDICARE, OTHER ==
[2018-01-10] MEDS ORDERED: ACETAMINOPHEN 325 MG TABLET PO ONE (21:33)
[2018-01-10 22:04] LABS: ABSOLUTE BASOPHILS # (AUTO) 0.1 10^3/uL (0.0-0.2); ABSOLUTE EOSINOPHILS # (AUTO) 0.2 10^3/uL (0.0-0.6); ABSOLUTE MONOCYTES (AUTO) 0.5 10^3/uL (0.1-1.4); ABSOLUTE NEUT (AUTO) 7.7 10^3/uL (1.7-8.2); BASOPHILS % (AUTO) 0.6 % (0-2); EOSINOPHILS % (AUTO) 1.8 % (0-6); HEMATOCRIT 35.3 % (37.9-51.0); HEMOGLOBIN 11.6 g/dL (13.5-17.0); MEAN CORPUSCULAR HEMOGLOBIN 28.9 pg (27.0-33.4); MEAN CORPUSCULAR VOLUME 88 fl (80-97); MONOCYTES % (AUTO) 5.2 % (3-13); PLATELET COUNT 268 10^3/uL (150-450); RED BLOOD COUNT 4.02 10^6/uL (4.35-5.55); RED CELL DISTRIBUTION WIDTH 16.6 % (11.5-14.0); SEGMENTED NEUTROPHILS % (AUTO) 81.4 % (42-78); TOTAL CELLS COUNTED % (AUTO) 100 %; WHITE BLOOD COUNT 9.5 10^3/uL (4.0-10.5)
[2018-01-10 22:14] LABS: ALANINE AMINOTRANSFERASE 23 U/L (21-72); ALBUMIN 3.3 g/dL (3.5-5.0); ALKALINE PHOSPHATASE 81 U/L (38-126); ANION GAP 11 (5-19); ASPARTATE AMINO TRANSFERASE 22 U/L (17-59); BILIRUBIN,DIRECT 0.3 mg/dL (0.0-0.4); BILIRUBIN,TOTAL 0.5 mg/dL (0.2-1.3); BLOOD UREA NITROGEN 21 mg/dL (7-20); CALCIUM 8.1 mg/dL (8.4-10.2); CARBON DIOXIDE 25 mmol/L (22-30); CHLORIDE 109 mmol/L (98-107); GLUCOSE 94 mg/dL (75-110); POTASSIUM 3.7 mmol/L (3.6-5.0); SODIUM 144.7 mmol/L (137-145); TOTAL PROTEIN 6.9 g/dL (6.3-8.2)
--- NOTE | 2018-01-11 02:12 | ER Document Report ---
ED General - General Mode of Arrival: Ambulatory Information source: Patient TRAVEL OUTSIDE OF THE [place] IN LAST 30 DAYS: No <SAMIR NASH - Last Filed: 01/11/18 02:43> <KELLY MULTANI - Last Filed: 01/11/18 04:45> - General Chief Complaint: Weakness Stated Complaint: WEAKNESS Time Seen by Provider: 01/10/18 23:32 Notes: Patient is an 87 year old male that presents to the emergency department today with complaints of being unable to get out of his car this evening due to "severe pain and his legs giving out". Patient was just seen here earlier this evening and was offered "admission overnight with possible placement to alf". Patient states he came back to be admitted overnight like he was offered previously. Patient states he has had right hip pain x4-5 days increasing yesterday. By history patient states he has been walking at home with his walker, not just when physical therapy is there. Patient states he tried using a heating pad yesterday. (SAMIR NASH) - Related Data Allergies/Adverse Reactions: No Known Allergies Allergy (Verified 10/17/17 15:47) Past Medical History - General Information source: Patient - Social History Smoking Status: Former Smoker Cigarette use (# per day): No Chew tobacco use (# tins/day): No Frequency of alcohol use: None Drug Abuse: None Lives with: Family Family History: Reviewed & Not Pertinent Patient has suicidal ideation: No Patient has homicidal ideation: No - Past Medical History Cardiac Medical History: Reports: Hx Hypertension Malignancy Medical History: Reports Hx Skin Cancer - basal cell carcinoma on back GI Medical History: Reports: Hx Gastroesophageal Reflux Disease Musculoskeletal Medical History: Reports Hx Arthritis Past Surgical History: Reports: Hx Abdominal Surgery - inguinal hernia repair, Hx Appendectomy, Hx Herniorrhaphy, Hx Orthopedic Surgery - finger - Immunizations Immunizations up to date: Yes Hx Diphtheria, Pertussis, Tetanus Vaccination: Yes <SAMIR NASH - Last Filed: 01/11/18 02:43> Review of Systems - Review of Systems Constitutional: No symptoms reported EENT: No symptoms reported Cardiovascular: No symptoms reported Respiratory: No symptoms reported Gastrointestinal: No symptoms reported Genitourinary: No symptoms reported Male Genitourinary: No symptoms reported Musculoskeletal: See HPI, Joint pain - right hip Skin: No symptoms reported Hematologic/Lymphatic: No symptoms reported Neurological/Psychological: No symptoms reported -: Yes All other systems reviewed and negative <SAMIR NASH - Last Filed: 01/11/18 02:43> Physical Exam <SAMIR NASH - Last Filed: 01/11/18 02:43> <KELLY MULTANI - Last Filed: 01/11/18 04:45> - Vital signs Vitals: Temp Pulse BP Pulse Ox 97.7 F 81 136/77 H 97 01/10/18 19:17 01/10/18 19:17 01/10/18 19:17 01/10/18 19:17 - Notes Notes: Physical Exam: General: Alert, appears age appropriate. HEENT: Normocephalic. Atraumatic. PERRL. Extraocular movements intact. Oropharynx clear. Neck: Supple. Non-tender. Respiratory: No respiratory distress. Clear and equal breath sounds bilaterally. Cardiovascular: Regular rate and rhythm. Abdominal: Normal Inspection. Non-tender. No distension. Normal Bowel Sounds. Back: Non-tender. No deformity or step off. Extremities: Moves all four extremities. Upper extremities: Normal inspection. Normal ROM. Lower extremities: Lumpy, tender pitting edema to bilateral legs just superior to indention line from socks, L>R. Patient was not aware of swelling or tenderness until exam. Internal rotation, external rotation, flexion, and palpation of right hip all without pain. Active abduction of right hip does not cause pain. No pain elicited when patient pushes down against resistance. Neurological: Slightly demented at baseline. AAOx4. Normal speech. Psychological: Normal affect. Normal Mood. Skin: Warm. Dry. Normal color. (SAMIR NASH) Course - Laboratory Result Diagrams: 01/10/18 21:50 01/10/18 21:50 <SAMIR NASH - Last Filed: 01/11/18 02:43> - Laboratory Result Diagrams: 01/10/18 21:50 01/10/18 21:50 <KELLY MULTANI - Last Filed: 01/11/18 04:45> - Re-evaluation Re-evalutation: 01/11/18 04:37 The patient has been waiting for a urinalysis to be done, as no laboratory studies were done on his visit earlier today. At this point he has still not provided a urine, but would like to go home and follow-up with his doctor. I think that is reasonable, considering that my evaluation of his hip did not show any pain or tenderness with manipulation or with active use. Reviewing the record shows that he has been on Cipro for the past 10 days and has another 4 days left in his prescription which he is taking for urinary tract infection. I further reviewed with the patient and spouse that under Medicare rules, he could not come into the hospital to be observed tonight and go to a prison the following day. (KELLY MULTANI) - Vital Signs Vital signs: Temp Pulse Resp BP Pulse Ox 97.7 F 81 136/77 H 97 01/10/18 19:17 01/10/18 19:17 01/10/18 19:17 01/10/18 19:17 - Laboratory Laboratory results interpreted by me: 01/10/18 01/10/18 21:50 21:50 RBC 4.02 L Hgb 11.6 L Hct 35.3 L RDW 16.6 H Seg Neutrophils % 81.4 H Lymphocytes % 11.0 L Chloride 109 H BUN 21 H Calcium 8.1 L Albumin 3.3 L Discharge <SAMIR NASH - Last Filed: 01/11/18 02:43> <KELLY MULTANI - Last Filed: 01/11/18 04:45> - Discharge Clinical Impression: Right hip pain Condition: Stable Disposition: HOME, SELF-CARE Additional Instructions: On evaluation this evening, your right hip did not seem to be painful to manipulate, and you did not have pain when I had you push against resistance enough to actually push you up in the bed. Perhaps the hip discomfort has improved while allowing it to rest today. Try to avoid any activity that makes the hip hurt worse. Follow-up with your primary care provider on Saturday for further evaluation of your hip discomfort. RETURN TO THE EMERGENCY ROOM IF ANY NEW OR WORSENING SYMPTOMS. Referrals: SHARMIN BETTS MD [Primary Care Provider] - 01/13/18 Scribe Attestation: 01/11/18 02:59 I personally performed the services described in the documentation, reviewed and edited the documentation which was dictated to the scribe in my presence, and it accurately records my words and actions. (KELLY MULTANI) Scribe Documentation - Scribe Written by Scribe:: Sangeetha Severino, 01/11/2018 [id number] acting as scribe for :: Andre <SAMIR NASH - Last Filed: 01/11/18 02:43>
[2018-01-11 07:04] VITALS: BP 133/53
== END 2018-01-11 07:29 | disposition home or self-care (01) ==
LOC: ER 19:02
DX: M25.551 Pain in right hip (principal); R53.1 Weakness; Z87.891 Personal history of nicotine dependence; I10 Essential (primary) hypertension
CPT/HCPCS: 99285; 36415; 85025; 80053; A9270

== ENCOUNTER → 2018-04-21 | Outpatient (CLI) | payer MEDICARE, OTHER ==
--- NOTE | 2018-04-21 14:02 | RADIOLOGY REPORT (SQ) ---
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 Coronal T2/HASTE imaging. CONTRAST TYPE AND DOSE: 10 mL IV Dotarem RENAL FUNCTION: GFR > 60. LIMITATIONS: None. FINDINGS: VISUALIZED UPPER ABDOMEN: Limited evaluation. No acute or suspicious findings suggested. SEGMENTATION: There is transitional anatomy with a large right L5 transverse process articulating wit h the upper sacrum. The lowest well-developed disc space is labeled L5-S1. ALIGNMENT: Anatomic. VERTEBRAE: Intact. No fractures. BONE MARROW AND DISC SIGNAL: At the L3-4 level, further destruction and fragmentation of the L3 verte bral body has occurred compared to previous exams, with a vertebra plana deformity at L3, focal kypho sis at L3-4, and asymmetric leftward loss of height of L3 and rightward loss of height of L4. This i s best shown on coronal image 10 and sagittal STIR images 3-10. There is posterior retropulsion of t he bony cortex of the L4 posterosuperior corner which causes asymmetric left central canal and high-g rade left foraminal stenosis at L3-4. Persistent fluid in the L3-4 disc space is seen today, with nitrogen air bubbles and contrast enhance ment paralleling the inferior L3 and upper L4 endplate. This has the appearance of advanced spondylo tic change/gout. Infectious discitis could not entirely be excluded. No paraspinal abscess/ phlegmo n is seen. POSTERIOR ELEMENTS: Generally intact. No pars defect evident. HARDWARE: None in the spine. CORD AND CONUS: Normal in size and signal intensity. Conus at the T12-L1 level. Since the prior stud y in 2018, patient has developed some arachnoid adhesions, with clumping of lumbar nerve roots in the thecal sac. SOFT TISSUES: No aortic aneurysm seen. No bulky retroperitoneal adenopathy or mass. No paraspinal mas s or fluid. L1-L2: No central or foraminal stenosis. Moderate bilateral facet hypertrophy. L2-L3: Mild grade 1 anterolisthesis of L2 over L3, broad diffuse posterior disc bulging and bulky miguel ateral facet and ligament hypertrophy causes mild to moderate central canal stenosis. There is yuri ening of the thecal sac along the lateral recesses containing the proximal L3 nerve roots best shown on axial T2 image 13 and 14. Elsewhere at L2-3, moderate bilateral foraminal narrowing is present wi thout definite exiting L2 nerve root impingement. L3-L4: Broad diffuse posterior disc bulge and moderate bilateral facet and ligament hypertrophy is pr esent. There is moderate narrowing of the leftward thecal sac at the L3-4 disc level and the left la teral recess containing the proximal left L4 nerve root, best shown on axial T2 images 16-18. High-g rade bilateral foraminal narrowing is present left greater than right. L4-L5: Minimal posterior disc bulging, mild bilateral facet hypertrophy. No central or foraminal enc roachment. L5-S1: No significant spinal stenosis or exit foraminal stenosis. SACRUM: Visualized upper sacrum intact. ENHANCEMENT: No abnormal conus or nerve root enhancement. There is enhancement paralleling the infer ior L3 endplate and upper L4 endplate. OTHER: No other significant findings. IMPRESSION: Progressive deterioration at the L3-4 disc level with focal kyphosis, vertebra plana def ormity of L3, retropulsion of the posterosuperior corner of L4 with significant leftward central and high-grade bilateral foraminal narrowing at L3-4. This may be due to advanced spondylotic change/gou t rather than infectious etiology. The prior MRI exams in 2018, patient has developed clumping of lumbar nerve roots in the thecal sac w orrisome for arachnoiditis TECHNICAL DOCUMENTATION: JOB ID: [id number] [employer]- All Rights Reserved Reading location - IP/workstation name: [email or web address]
== END ==
LOC: RAD 08:59
PROVIDERS: ATTEND Pain Medicine Interventional Pain Medicine
DX: M54.16 Radiculopathy, lumbar region (principal); M48.061 Spinal stenosis, lumbar region without neurogenic claudication
CPT/HCPCS: 82565; 72158; A9576

== ENCOUNTER 2019-07-31 18:26 | Emergency (ER) | payer MEDICARE, OTHER ==
[2019-07-31] MEDS ORDERED: DIPH/PERTUSS(ACELL)/TETANUS VAC/PF 0.5 ML SYR (>=10YO) IM ONE (18:38)
--- NOTE | 2019-07-31 19:16 | RADIOLOGY REPORT (SQ) ---
EXAM DESCRIPTION: CT HEAD WITHOUT IMAGES COMPLETED DATE/TIME: 07/31/2019 7:05 pm REASON FOR STUDY: fall on asa COMPARISON: None. TECHNIQUE: Axial images acquired through the brain without intravenous contrast. Images reviewed wi th bone, brain and subdural windows. Additional sagittal and coronal reconstructions were generated. Images stored on PACS. All CT scanners at this facility use dose modulation, iterative reconstruction, and/or weight based d osing when appropriate to reduce radiation dose to as low as reasonably achievable (ALARA). [facility]: Dose Right [facility]: CareDose [facility]: Dose Right [facility]: Teradose 4D [facility]: Smart Anagran RADIATION DOSE: CT Rad equipment meets quality standard of care and radiation dose reduction techniq ues were employed. CTDIvol: 53.2 mGy. DLP: 937 mGy-cm. mGy. LIMITATIONS: None. FINDINGS: VENTRICLES: Normal size and contour. CEREBRUM: No masses. No hemorrhage. No midline shift. No evidence for acute infarction. Few scatte red areas of low density in the white matter most likely chronic small vessel ischemic changes. CEREBELLUM: No masses. No hemorrhage. No alteration of density. No evidence for acute infarction. EXTRAAXIAL SPACES: No fluid collections. No masses. ORBITS AND GLOBE: No intra- or extraconal masses. Normal contour of globe without masses. CALVARIUM: No fracture. PARANASAL SINUSES: No fluid or mucosal thickening. SOFT TISSUES: No mass or hematoma. OTHER: No other significant finding. IMPRESSION: MILD CHRONIC MICROVASCULAR ISCHEMIA. NO ACUTE IMAGING FINDINGS IN THE BRAIN. EVIDENCE OF ACUTE STROKE: NO. COMMENT: Quality ID # [id number]: Final reports with documentation of one or more dose reduction techniques (e.g., Automated exposure control, adjustment of the mA and/or kV according to patient size, use of iterative reconstruction technique) TECHNICAL DOCUMENTATION: JOB ID: [id number] 2010 [employer]- All Rights Reserved Reading location - IP/workstation name: [email or web address]
--- NOTE | 2019-07-31 19:17 | RADIOLOGY REPORT (SQ) ---
EXAM DESCRIPTION: HAND RIGHT 3 VIEWS IMAGES COMPLETED DATE/TIME: 07/31/2019 6:54 pm REASON FOR STUDY: fall multi finger inj COMPARISON: 06/03/2015 EXAM PARAMETERS: NUMBER OF VIEWS: Three views. TECHNIQUE: AP, lateral and oblique radiographic images acquired of the right hand. LIMITATIONS: None. FINDINGS: MINERALIZATION: Normal. BONES: No acute fracture or dislocation. No worrisome bone lesions. JOINTS: No effusions. SOFT TISSUES: No soft tissue swelling. No foreign body. OTHER: No other significant finding. IMPRESSION: NEGATIVE STUDY OF THE RIGHT HAND. NO RADIOGRAPHIC EVIDENCE OF ACUTE INJURY. TECHNICAL DOCUMENTATION: JOB ID: [id number] 2010 [employer]- All Rights Reserved Reading location - IP/workstation name: [email or web address]
--- NOTE | 2019-07-31 19:17 | ER Document Report ---
ED General - General Chief Complaint: Finger Injury Stated Complaint: LACERATIONS Primary Care Provider: JEANNE GRIFFITH MD [Primary Care Provider] - Follow up as needed Notes: Patient is an 88-year-old white male who takes an aspirin daily who presents to the emergency department the chief complaint of bilateral finger injuries. He states he was pulling some weeds out of his driveway near the garage when he slipped off the edge of the garage falling striking the back of his head landing on his hands on the cement. He admits to multiple skin tears on the distal fingertips and pads. He did strike the back of his head but denies any bleeding from the head or loss of consciousness. Denies any neck pain, dizziness, visual disturbances or retrograde amnesia. Unsure of his last tetanus. TRAVEL OUTSIDE OF THE [place] IN LAST 30 DAYS: No - Related Data Allergies/Adverse Reactions: No Known Allergies Allergy (Verified 10/17/17 15:47) Past Medical History - Social History Smoking Status: Former Smoker Frequency of alcohol use: None Drug Abuse: None Family History: Reviewed & Not Pertinent Patient has suicidal ideation: No Patient has homicidal ideation: No - Past Medical History Cardiac Medical History: Reports: Hx Hypertension Denies: Hx Heart Attack Pulmonary Medical History: Denies: Hx Asthma Neurological Medical History: Denies: Hx Cerebrovascular Accident, Hx Seizures Renal/ Medical History: Denies: Hx Peritoneal Dialysis Malignancy Medical History: Reports Hx Skin Cancer - basal cell carcinoma on back GI Medical History: Reports: Hx Gastroesophageal Reflux Disease. Denies: Hx Hepatitis, Hx Hiatal Hernia, Hx Ulcer Musculoskeletal Medical History: Reports Hx Arthritis Psychiatric Medical History: Denies: Hx Depression Infectious Medical History: Denies: Hx Hepatitis Past Surgical History: Reports: Hx Abdominal Surgery - inguinal hernia repair, Hx Appendectomy, Hx Herniorrhaphy, Hx Orthopedic Surgery - finger. Denies: Hx Open Heart Surgery, Hx Pacemaker - Immunizations Immunizations up to date: Yes Hx Diphtheria, Pertussis, Tetanus Vaccination: Yes Review of Systems - Review of Systems Skin: Other - Skin tears Neurological/Psychological: denies: Lost consciousness, Headaches -: Yes All other systems reviewed and negative Physical Exam - Vital signs Vitals: Temp Pulse Resp BP Pulse Ox 98.4 F 91 18 178/82 H 96 07/31/19 18:30 07/31/19 18:30 07/31/19 18:30 07/31/19 18:30 07/31/19 18:30 - General General appearance: Appears well, Alert In distress: None - HEENT Notes: No hemotympanum. No raccoon eyes or moran signs - Respiratory Respiratory status: No respiratory distress Chest status: Nontender Breath sounds: Normal Chest palpation: Normal - Cardiovascular Rhythm: Regular Heart sounds: Normal auscultation - Back Back: Normal, Nontender - Extremities Elbow: Other - Lateral right elbow skin tears with some ecchymosis. Full passive range of motion of the elbow. Elbow nontender. No deformity step-off or crepitus. Hand: Other - Full passive range of motion of the bilateral hands and wrist. 2+ radial at the wrist bilaterally. No deformities - Neurological Neuro grossly intact: Yes Cognition: Normal Orientation: AAOx4 [place] Coma Scale Eye Opening: Spontaneous [place] Coma Scale Verbal: Oriented [place]sie Coma Scale Motor: Obeys Commands Elsie Coma Scale Total: 15 Speech: Normal Motor strength normal: LUE, RUE, LLE, RLE Sensory: Normal - Psychological Associated symptoms: Normal affect, Normal mood - Skin Skin Temperature: Warm Skin Moisture: Dry Skin Color: Other - Multiple skin tears to the pads of distal fingers diffusely. No laceration. superficial avulsions. Bleeding controlled. No foreign body visualized. Course - Re-evaluation Re-evalutation: 07/31/19 19:48 Patient with multiple skin tears after a fall. CT scan and x-rays negative for any acute process. His wounds were cleansed, irrigated and bandaged. He advised he has an emergency kit at home for wounds. He will attend to them as we discussed regarding wound care. He will follow-up in 2 to 3 days for wound recheck and reevaluation. I advised to return here or any ER immediately with any new, persistent or worsening symptoms. He verbalized understood and agreed. - Vital Signs Vital signs: Temp Pulse Resp BP Pulse Ox 98.4 F 91 18 178/82 H 96 07/31/19 18:30 07/31/19 18:30 07/31/19 18:30 07/31/19 18:30 07/31/19 18:30 Discharge - Discharge Clinical Impression: Multiple skin tears Fall Qualifiers: Encounter type: initial encounter Qualified Code(s): W19.XXXA - Unspecified fall, initial encounter Condition: Stable Disposition: HOME, SELF-CARE Instructions: Soap Cleansing ([facility]) Additional Instructions: Follow-up with your regular doctor in 2 to 3 days for reevaluation. Return here or any ER immediately with any new, persistent or worsening symptoms. Referrals: JEANNE GRIFFITH MD [Primary Care Provider] - Follow up as needed
--- NOTE | 2019-07-31 19:18 | RADIOLOGY REPORT (SQ) ---
EXAM DESCRIPTION: HAND LEFT 3 VIEWS IMAGES COMPLETED DATE/TIME: 07/31/2019 6:54 pm REASON FOR STUDY: fall multi finger inj COMPARISON: None. EXAM PARAMETERS: NUMBER OF VIEWS: Three views. TECHNIQUE: AP, lateral and oblique radiographic images acquired of the left hand. LIMITATIONS: None. FINDINGS: MINERALIZATION: Normal. BONES: No acute fracture or dislocation. No worrisome bone lesions. JOINTS: No effusions. SOFT TISSUES: No soft tissue swelling. No foreign body. OTHER: No other significant finding. IMPRESSION: NEGATIVE STUDY OF THE LEFT HAND. NO RADIOGRAPHIC EVIDENCE OF ACUTE INJURY. TECHNICAL DOCUMENTATION: JOB ID: [id number] 2010 [employer]- All Rights Reserved Reading location - IP/workstation name: [email or web address]
[2019-07-31 20:11] VITALS: BP 158/59
== END 2019-07-31 20:10 | disposition home or self-care (01) ==
LOC: ER 18:26
DX: S61.219A Laceration without foreign body of unspecified finger without damage to nail, initial encounter (principal); S51.011A Laceration without foreign body of right elbow, initial encounter; W19.XXXA Unspecified fall, initial encounter; Y93.89 Activity, other specified; I10 Essential (primary) hypertension; Z87.891 Personal history of nicotine dependence
CPT/HCPCS: 70450; 90471; 90715; 99283